=== PATIENT | female | born 1945 | race Caucasian/White ===

== ENCOUNTER 2019-05-08 10:11 | Inpatient (IN) | payer MEDICARE ==
--- OUTSIDE RECORDS SUMMARY | 2019-05-08 10:17 | XMS REPORT | Continuity of Care Document ---
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 President [employer] Unavailable Payers Date Identification Numbers Payment Provider Subscriber Effective: 2008 Policy Number: [id number] [place] Expires: 2018 PayID: [id number] [address] [place] [address] Effective: 2018 Policy Number: [id number] [place] PayID: [id number] [address] [facility] [place] [place] [address] Problems Active Problems Provider Date Tobacco user Alban Wu MD Onset: 09/22/2012 Impaired fasting glycaemia Alban Wu MD Onset: 10/06/2012 Pure hypercholesterolemia Alban Wu MD Onset: 10/06/2012 Essential hypertension Alban Wu MD Onset: 10/06/2012 Vitamin D deficiency Alban Wu MD Onset: 02/15/2013 Mitral valve disorder Alban Wu MD Onset: 11/06/2015 Hypertensive heart disease without heart Alban Wu MD Onset: 2015 failure Carotid artery occlusion Alban Wu MD Onset: 04/07/2017 Resolved Problems Chronic pulmonary heart disease Alban Wu MD Onset: 11/06/2015 Resolved: 07/01/2018 Tricuspid valve disorder, non-rheumatic Alban Wu MD Onset: 2015 Resolved: 07/01/2018 Secondary pulmonary hypertension Alban Wu MD Onset: 03/31/2018 Resolved: 07/01/2018 Family History Date Family Member(s) Observation Comments General None Social History Type Date Description Comments Sex Unknown Marital Status 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 1/2 PPD as per 03/21/15 info and 11/05 of PPD since April of 2015. Smoking Status Reviewed: current cigarette 1/2 PPD "Off and on" 03/31/18 smoker Since 11/2013 1 pack per week. 1/2 PPD as per 03/21/15 info and 11/05 of PPD since April of 2015. ETOH Use Consumes 1 glass of wine per day Recreational Drug Use Denies Drug Use Tobacco Use Start: Unknown Patient is a current smoker, smokes some days Exercise Exercises sporadically Type/Frequency Allergies, Adverse Reactions, Alerts Active Allergies Reaction Severity Comments Date Penicillins Skin Rashes/Hives Moderate 10/09/2008 Shellfish Skin Rashes/Hives Mild 10/09/2008 Medications Active Medications SIG Qnty Indications Ordering Date Provider Prevnar 13 administer half a 1units Z00.01 Phoenix A 04/04/2019 milliliters MD Jazmin Suspension intramuscularly one time for inactivated vaccination to prevent pneumococcal infection F17.210 Atorvastatin Calcium take one tablet by 90tabs I65.21 Alban A 2017 20mg mouth in the evening MD Jazmin Tablets for high cholesterol E78.00 Aspir-Low take 1 tablet by I65.21 Alban Wu, 11/06/[address] mouth daily for MD treatment to prevent blood clotting Vitamin D-3 1 by mouth every E55.9 Alban Wu, 02/15/2013 2000Unit day Tablets Lisinopril take one tablet by 90tabs I10 Alban Wu, 10/06/2012 10mg Tablets mouth every day for MD high blood pressure Multivitamins 1 by mouth every Unknown 11/02/1999 Tablets day History Medications Shingrix one intramuscular 1units Z00.01 Phoenix A 03/31/2018 - 50mcg dose now and repeat MD Jazmin 07/01/2018 Suspension Rec 2nd dose after 2-6 months. Atorvastatin take 1 tablet by 90tabs I65.21 Alban Saunders 03/21/2015 - Calcium mouth daily for MD Jazmin 03/31/2018 10mg elevation of Tablets cholesterol in blood E78.00 Immunizations CPT Code Status Date Vaccine Lot # [id number] Given 09/28/2017 Influenza Vaccine Quadrivalent [id number] Preser/Antibiotic [place] Use [address] Given 08/14/2016 Influenza Virus Split 3 Yrs And Above For [id number] Intramuscular Use 21785 Given 07/11/2015 Influenza Virus Split 3 Yrs And Above For [id number] Intramuscular Use 51680 Given 08/21/2014 Influenza Virus Split 3 Yrs And Above For Flu [id number] Intramuscular Use 01554 Given 07/22/2013 Influenza Virus Split 3 Yrs And Above For FLU [id number] Intramuscular Use 99648 Given 09/22/2012 Pneumococcal Vaccine 2Yrs Or Older PNEUMO [id number] 78047 Given 09/22/2012 Tdap-Tetanus, Diphtheria Toxoids/Acellular TDAP [id number] Pertussis Vaccine 7+ 59995 Given 08/18/2012 Influenza Virus Split 3 Yrs And Above For FLU [id number] Intramuscular Use 86585 Given 08/29/2011 Influenza Virus Split 3 Yrs And Above For FLU [id number] Intramuscular Use [id number] Refused 04/04/2019 Shingrix (Shingles) Vaccine [id number] Refused 09/22/2012 Zoster Shingles Vaccine For Subcutaneous Injection Vital Signs Date Vital Result Comment 04/04/2019 10:05am Body Temperature 99.4 F O2 % BldC Oximetry 95 % Heart Rate 108 /min BP Systolic 160 mmHg BP Diastolic 85 mmHg BP Systolic Recheck 135 mmHg BP Diastolic Recheck 80 mmHg BMI (Body Mass Index) 22.1 kg/m2 Weight 120.00 lb Height 61.75 inches 5'1.75" 11/10/2018 10:38am Heart Rate 78 /min BP Systolic 130 mmHg BP Diastolic 80 mmHg Weight 122.00 lb 07/01/2018 9:58am Heart Rate 78 /min BP Systolic 125 mmHg BP Diastolic 75 mmHg 04/06/2018 8:31am Ejection Fraction 55-65% ECHO 03/31/2018 10:02am Body Temperature 98.3 F O2 % BldC Oximetry 96 % Heart Rate 93 /min BP Systolic 118 mmHg BP Diastolic 80 mmHg BMI (Body Mass Index) 21.6 kg/m2 Weight 117.00 lb Height 61.75 inches 5'1.75" 09/28/2017 11:13am Heart Rate 76 /min BP Systolic 125 mmHg BP Diastolic 80 mmHg Weight 121.00 lb 07/02/2017 10:59am Heart Rate 72 /min BP Systolic 130 mmHg BP Diastolic 80 mmHg 03/26/2017 10:20am Body Temperature 98.3 F Heart Rate 66 /min BP Systolic 110 mmHg BP Diastolic 80 mmHg BMI (Body Mass Index) 22.5 kg/m2 Weight 123.00 lb Height 62 inches 5'2" 09/24/2016 9:51am Heart Rate 76 /min BP Systolic 160 mmHg BP Diastolic 85 mmHg BP Systolic Recheck 130 mmHg "At home" per patient BP Diastolic Recheck 80 mmHg "At home" per patient Weight 124.00 lb 03/24/2016 11:17am O2 % BldC Oximetry 96 % Heart Rate 90 /min BP Systolic 145 mmHg BP Diastolic 80 mmHg BMI (Body Mass Index) 22.3 kg/m2 Weight 122.00 lb Height 62 inches 5'2" 10/03/2015 11:26am Heart Rate 70 /min BP Systolic 125 mmHg BP Diastolic 80 mmHg 06/25/2015 10:57am Heart Rate 68 /min BP Systolic 122 mmHg BP Diastolic 75 mmHg Weight 128.00 lb 03/21/2015 11:29am O2 % BldC Oximetry 96 % Heart Rate 81 /min BP Systolic 126 mmHg BP Diastolic 80 mmHg BMI (Body Mass Index) 24.2 kg/m2 Weight 131.00 lb Height 61.75 inches 5'1.75" 03/16/2014 10:59am Body Temperature 98.9 F O2 % BldC Oximetry 96 % Heart Rate 84 /min BP Systolic 124 mmHg BP Diastolic 75 mmHg BMI (Body Mass Index) 24.7 kg/m2 Weight 135.00 lb with shoes, in office, clothed Height 62 inches 5'2" 12/06/2013 10:23am Body Temperature 98.6 F O2 % BldC Oximetry 99 % Ra, AT Rest Heart Rate 76 /min BP Systolic 130 mmHg BP Diastolic 75 mmHg BMI (Body Mass Index) 24.3 kg/m2 Weight 133.00 lb Height 62 inches 5'2" 06/23/2013 9:54am Heart Rate 68 /min BP Systolic 125 mmHg BP Diastolic 70 mmHg BMI (Body Mass Index) 24.9 kg/m2 Weight 136.00 lb Height 62 inches 5'2" 02/15/2013 11:05am Heart Rate 62 /min BP Systolic 138 mmHg BP Diastolic 80 mmHg BMI (Body Mass Index) 26.0 kg/m2 Weight 142.00 lb Height 62 inches 5'2" 10/06/2012 10:41am Heart Rate 70 /min BP Systolic 160 mmHg BP Diastolic 85 mmHg BMI (Body Mass Index) 25.8 kg/m2 Weight 141.00 lb Height 62 inches 5'2" 09/22/2012 2:17pm Body Temperature 98.7 F O2 % BldC Oximetry 98 % Ra, AT Rest Heart Rate 80 /min BP Systolic 160 mmHg Bilateral Ue, while supine BP Diastolic 80 mmHg Bilateral Ue, while supine BP Systolic Recheck 160 mmHg Sitting BP Diastolic Recheck 80 mmHg Sitting BMI (Body Mass Index) 26.0 kg/m2 Weight 142.00 lb Height 62 inches 5'2" Results Test Date Facility Test Result H/L Range Note CBC No Diff 03/29/2019 [facility] White Blood 7.1 10^3/uL N 3.5-10.8 [place] [address] Count [phone] Red Blood Count 4.19 10^6/uL N 3.70-4.87 Hemoglobin 14.3 g/dL N 12.0-16.0 Hematocrit 42 % N 35-47 Mean Corpuscular Volume 100 fL High 80-97 Mean Corpuscular Hemoglobin 34 pg High 27-31 Mean Corpuscular HGB Conc 34 g/dL N 31-36 Red Cell Distribution Width 14 % N 10.5-15 Platelet Count 258 10^3/uL N 150-450 Mean Platelet Volume 8.2 fL N 7.4-10.4 Comp Metabolic Panel 03/29/2019 [facility] Sodium 140 mmol/L N 135-145 [place] [address] [phone] Potassium 4.5 mmol/L N 3.5-5.0 Chloride 104 mmol/L N 101-111 Co2 Carbon Dioxide 28 mmol/L N 22-32 Anion Gap 8 mmol/L N 2-11 Glucose 149 mg/dL High 70-100 Blood Urea Nitrogen 19 mg/dL N 6-24 Creatinine 0.63 mg/dL N 0.51-0.95 BUN/Creatinine Ratio 30.2 High 8-20 Calcium 10.1 mg/dL N 8.6-10.3 Total Protein 7.0 g/dL N 6.4-8.9 Albumin 4.6 g/dL N 3.2-5.2 Globulin 2.4 g/dL N 2-4 Albumin/Globulin Ratio 1.9 N 1-3 Total Bilirubin 0.80 mg/dL N 0.2-1.0 Alkaline Phosphatase 68 U/L N 34-104 Alt 70 U/L High 7-52 Ast 60 U/L High 13-39 Egfr Non- 91.9 >60 Egfr 111.2 >60 1 Lipid Profile 03/29/2019 [facility] Triglycerides 61 mg/dL 2 (Trig/Chol/HDL) [place] [address] [phone] Cholesterol 234 mg/dL 3 HDL Cholesterol 137.6 mg/dL 4 LDL Cholesterol 84 mg/dL 5 Laboratory test 03/29/2019 [facility] Hemoglobin A1c 5.8 % High 4.0-5.6 6 [place] [address] (Glyco HGB) [phone] Urinalysis 03/29/2019 [facility] [place] [address] [phone] Urine Appearance Cloudy Urine Specific Merrill 1.024 N 1.010-1.030 Urine pH 7.0 N 5-9 Urine Urobilinogen Negative Negative Urine Ketones Trace Abnormal Negative Urine Protein 1+(30 mg/dL) Abnormal Negative Urine Leukocytes Negative Negative Urine Blood Negative Negative * * Abnormal Negative 7 Urine Nitrite Negative Negative Urine Bilirubin Negative Negative Urine Glucose Negative Negative Urine White Blood Cell Trace(0-5/hpf) Absent Urine Red Blood Cell 2+(6-10/hpf) Abnormal Absent Urine Bacteria Absent Absent Urine Squamous Epithelial Cell Present Abnormal Absent Urine Culture And 03/29/2019 [facility] Urine Culture SEE RESULT 8 [place] [address] BELOW [phone] Laboratory test 06/24/2018 [facility] Alt 39 U/L N 7-52 [place] [address] [phone] LDL Cholesterol Direct 74 mg/dL 9 Hemoglobin A1c (Glyco HGB) 5.8 % High 4.0-5.6 10 Order 04/06/2018 [facility] Echocardiogram Normal [address] [place] [address] [phone] Lipid Profile 03/25/2018 [facility] Triglycerides 54 mg/dL < 150 11 (Trig/Chol/HDL) [place] [address] [phone] Cholesterol 219 mg/dL High <200 12 HDL Cholesterol 105.9 mg/dL >40 13 LDL Cholesterol 102 mg/dL High <100 14 Laboratory test 03/25/2018 [facility] Hemoglobin A1c 5.8 % High 4.0-5.6 15 [place] [address] (Glyco HGB) [phone] Comp Metabolic 03/25/2018 [facility] Sodium 139 N 139-145 [place] [address] mmol/L [phone] Potassium 4.5 mmol/L N 3.5-5.0 Chloride 101 mmol/L N 101-111 Co2 Carbon Dioxide 30 mmol/L N 22-32 Anion Gap 8 mmol/L N 2-11 Glucose 140 mg/dL High 70-100 Blood Urea Nitrogen 14 mg/dL N 6-24 Creatinine 0.63 mg/dL N 0.51-0.95 BUN/Creatinine Ratio 22.2 High 8-20 Calcium 9.6 mg/dL N 8.6-10.3 Total Protein 7.0 g/dL N 6.4-8.9 Albumin 4.4 g/dL N 3.2-5.2 Globulin 2.6 g/dL N 2-4 Albumin/Globulin Ratio 1.7 N 1-3 Total Bilirubin 0.60 mg/dL N 0.2-1.0 Alkaline Phosphatase 54 U/L N 34-104 Alt 20 U/L N 7-52 Ast 24 U/L N 13-39 Egfr Non- 92.1 >60 Egfr 118.5 >60 16 CBC No Diff 03/25/2018 [facility] White Blood 5.3 10^3/uL N 3.5-10.8 [place] [address] Count [phone] Red Blood Count 4.42 10^6/uL N 4.0-5.4 Hemoglobin 14.7 g/dL N 12.0-16.0 Hematocrit 43 % N 35-47 Mean Corpuscular Volume 98 fL High 80-97 Mean Corpuscular Hemoglobin 33 pg High 27-31 Mean Corpuscular HGB Conc 34 g/dL N 31-36 Red Cell Distribution Width 13 % N 10.5-15 Platelet Count 268 10^3/uL N 150-450 Mean Platelet Volume 8.5 um3 N 7.4-10.4 Basic Metabolic Panel 09/21/2017 [facility] Sodium 139 mmol/L N 133-145 [place] [address] [phone] Potassium 4.5 mmol/L N 3.5-5.0 Chloride 102 mmol/L N 101-111 Co2 Carbon Dioxide 30 mmol/L N 22-32 Anion Gap 7 mmol/L N 2-11 Glucose 124 mg/dL High 70-100 Blood Urea Nitrogen 18 mg/dL N 6-24 Creatinine 0.59 mg/dL N 0.51-0.95 BUN/Creatinine Ratio 30.5 High 8-20 Calcium 10.2 mg/dL N 8.6-10.3 Egfr Non- 99.6 >60 Egfr 128.1 >60 17 Laboratory 09/21/2017 [facility] Hemoglobin A1c 5.7 % High 4.0 -5.6 18 [place] [address] (Glyco HGB) [phone] Xray 04/02/2017 [facility] Carotid Duplex >70% Rt I[facility] [address] Scan, [place] [address] Complete, [phone] Bilateral CBC No Diff 03/19/2017 [facility] White Blood 7.6 10^3/uL N 3.5-10.8 [place] [address] Count [phone] Red Blood Count 4.36 10^6/uL N 4.0-5.4 Hemoglobin 14.2 g/dL N 12.0-16.0 Hematocrit 41 % N 35-47 Mean Corpuscular Volume 95 fL N 80-97 Mean Corpuscular Hemoglobin 33 pg High 27-31 Mean Corpuscular HGB Conc 34 g/dL N 31-36 Red Cell Distribution Width 13 % N 10.5-15 Platelet Count 281 10^3/uL N 150-450 Mean Platelet Volume 9 um3 N 7.4-10.4 Comp Metabolic Panel 03/19/2017 [facility] Sodium 138 mmol/L N 133-145 [place] [address] [phone] Potassium 4.0 mmol/L N 3.5-5.0 Chloride 101 mmol/L N 101-111 Co2 Carbon Dioxide 29 mmol/L N 22-32 Anion Gap 8 mmol/L N 2-11 Glucose 137 mg/dL High 70-100 Blood Urea Nitrogen 17 mg/dL N 6-24 Creatinine 0.69 mg/dL N 0.51-0.95 BUN/Creatinine Ratio 24.6 High 8-20 Calcium 9.8 mg/dL N 8.6-10.3 Total Protein 6.8 g/dL N 6.4-8.9 Albumin 4.4 g/dL N 3.2-5.2 Globulin 2.4 g/dL N 2-4 Albumin/Globulin Ratio 1.8 N 1-3 Total Bilirubin 0.60 mg/dL N 0.2-1.0 Alkaline Phosphatase 50 U/L N 34-104 Alt 19 U/L N 7-52 Ast 21 U/L N 13-39 Egfr Non- 83.4 N >60 Egfr 107.3 N >60 19 Laboratory test 03/19/2017 [facility] Hemoglobin A1c 6.1 % High Less 20 [place] [address] (Glyco HGB) than 6.0 [phone] Lipid Profile 03/19/2017 [facility] Triglycerides 66 N <150 21 (Trig/Chol/HDL) [place] [address] mg/dL [phone] Cholesterol 200 mg/dL N <200 22 HDL Cholesterol 88.2 mg/dL N >40 23 LDL Cholesterol 99 mg/dL N <100 24 Urinalysis Profile 03/19/2017 [facility] [place] [address] [phone] Urine Appearance Clear N Urine Specific Merrill 1.004 Low 1.010-1.030 Urine pH 7.0 N 5-9 Urine Urobilinogen Negative N Negative Urine Ketones Negative N Negative Urine Protein Negative N Negative Urine Leukocytes Negative N Negative Urine Blood Negative N Negative Urine Nitrite Negative N Negative Urine Bilirubin Negative N Negative Urine Glucose Negative N Negative Basic Metabolic Panel 09/17/2016 [facility] Sodium 138 mmol/L N 133-145 [place] [address] [phone] Potassium 4.8 mmol/L N 3.5-5.0 Chloride 101 mmol/L N 101-111 Co2 Carbon Dioxide 30 mmol/L N 22-32 Anion Gap 7 mmol/L N 2-11 Glucose 108 mg/dL High 70-100 Blood Urea Nitrogen 13 mg/dL N 6-24 Creatinine 0.62 mg/dL N 0.51-0.95 BUN/Creatinine Ratio 21.0 High 8-20 Calcium 9.7 mg/dL N 8.6-10.3 Egfr Non- 94.4 N >60 Egfr 121.3 N >60 25 Laboratory test 09/17/2016 [facility] Hemoglobin A1c 6.2 % High Less than [address] [place] [address] (Glyco HGB) 6.0 [phone] Xray 04/04/2016 [facility] Mammography, Normal [address] Screening, [place] [address] Bilateral [phone] Urinalysis 03/17/2016 [facility] Urine Color Yellow N 27 [place] [address] [phone] Urine Appearance Cloudy N Urine Specific Merrill 1.019 N 1.010-1.030 Urine pH 6.0 N 5-9 Urine Urobilinogen Negative N Negative Urine Ketones Negative N Negative Urine Protein Negative N Negative Urine Leukocytes Negative N Negative Urine Blood Negative N Negative Urine Nitrite Negative N Negative Urine Bilirubin Negative N Negative Urine Glucose Negative N Negative CBC No Diff 03/17/2016 [facility] White Blood 3.9 10^3/uL N 3.5-10.8 [place] [address] Count [phone] Red Blood Count 4.33 10^6/uL N 4.0-5.4 Hemoglobin 13.9 g/dL N 12.0-16.0 Hematocrit 43 % N 35-47 Mean Corpuscular Volume 98 fL High 80-97 Mean Corpuscular Hemoglobin 32 pg High 27-31 Mean Corpuscular HGB Conc 33 g/dL N 31-36 Red Cell Distribution Width 14 % N 10.5-15 Platelet Count 269 10^3/uL N 150-450 Mean Platelet Volume 8 um3 N 7.4-10.4 Comp Metabolic Panel 03/17/2016 [facility] Sodium 141 mmol/L N 133-145 [place] [address] [phone] Potassium 4.1 mmol/L N 3.5-5.0 Chloride 105 mmol/L N 101-111 Co2 Carbon Dioxide 30 mmol/L N 22-32 Anion Gap 6 mmol/L N 2-11 Glucose 99 mg/dL N 70-100 Blood Urea Nitrogen 14 mg/dL N 6-24 Creatinine 0.55 mg/dL N 0.51-0.95 BUN/Creatinine Ratio 25.5 High 8-20 Calcium 9.7 mg/dL N 8.6-10.3 Total Protein 6.6 g/dL N 6.4-8.9 Albumin 4.5 g/dL N 3.2-5.2 Globulin 2.1 g/dL N 2-4 Albumin/Globulin Ratio 2.1 N 1-3 Total Bilirubin 0.50 mg/dL N 0.2-1.0 Alkaline Phosphatase 48 U/L N 34-104 Alt 20 U/L N 7-52 Ast 22 U/L N 13-39 Egfr Non- 108.6 N >60 Egfr 139.7 N >60 28 Laboratory test 03/17/2016 [facility] Hemoglobin A1c 6.1 % High Less 29 [place] [address] (Glyco HGB) than 6.0 [phone] Lipid Profile 03/17/2016 [facility] Triglycerides 86 N <150 30 (Trig/Chol/HDL) [place] [address] mg/dL [phone] Cholesterol 180 mg/dL N <200 31 HDL Cholesterol 78.4 mg/dL N >35 32 LDL Cholesterol 84 mg/dL N <100 33 Order 10/11/2015 [facility] Echocardiogram MS/TR/Ef 60% [address] [place] [address] [phone] Basic Metabolic 09/26/2015 [facility] Sodium 139 mmol/L N 133- 14 [place] [address] 5 [phone] Potassium 4.9 mmol/L N 3.5-5.0 Chloride 102 mmol/L N 101-111 Co2 Carbon Dioxide 31 mmol/L N 22-32 Anion Gap 6 mmol/L N 2-11 Glucose 109 mg/dL High 70-100 Blood Urea Nitrogen 10 mg/dL N 6-24 Creatinine 0.69 mg/dL N 0.51-0.95 BUN/Creatinine Ratio 14.5 N 8-20 Calcium 10.2 mg/dL N 8.6-10.3 Egfr Non- 83.6 N >60 Egfr 107.6 N >60 34 Laboratory test 09/26/2015 [facility] Vitamin D 39.8 ng/mL N 30-50 [place] [address] Total 25(Oh) [phone] Hemoglobin A1c (Glyco HGB) 6.3 % High Less than 6.0 35 Laboratory test 06/18/2015 [facility] Creatine Kinase 73 U/L N 10-223 36 [place] [address] [phone] Alt 20 U/L N 7-52 37 Hemoglobin A1c (Glyco HGB) 6.3 % High Less than 6.0 38 Lipid Profile 06/18/2015 [facility] Triglycerides 59 mg/dL N 39 (Trig/Chol/HDL) [place] [address] [phone] Cholesterol 175 mg/dL N 40 HDL Cholesterol 77.7 mg/dL N 41 LDL Cholesterol 86 mg/dL N 42 Urine Microalbumin 03/14/2015 [facility] Ur Microalbumin 23.0 mg /[place] [address] (mg/L) [phone] Urine Creatinine 16.99 mg/dL N Urine Microalbumin/Creatinine 135.3 ug/mg High <31 Lipid Profile 03/14/2015 [facility] Triglycerides 95 mg/dL N 43 (Trig/Chol/HDL) [place] [address] [phone] Cholesterol 232 mg/dL N 44 HDL Cholesterol 82.1 mg/dL N 45 LDL Cholesterol 131 mg/dL N 46 Laboratory test 03/14/2015 [facility] Hemoglobin A1c 6.3 % High Less than 47 [place] [address] 6.0 [phone] Basic Metabolic 03/14/2015 [facility] Sodium 139 N 133-145 [place] [address] mmol/L [phone] Potassium 4.3 mmol/L N 3.5-5.0 Chloride 102 mmol/L N 101-111 Co2 Carbon Dioxide 28 mmol/L N 22-32 Anion Gap 9 mmol/L N 2-11 Glucose 96 mg/dL N 70-100 Blood Urea Nitrogen 9 mg/dL N 6-24 Creatinine 0.58 mg/dL N 0.51-0.95 BUN/Creatinine Ratio 15.5 N 8-20 Calcium 9.9 mg/dL N 8.6-10.3 Egfr Non- 102.5 N >60 Egfr 131.8 N >60 48 CBC No Diff 03/14/2015 [facility] White Blood 3.8 10^3/uL Low 4.8-10.8 [place] [address] Count [phone] Red Blood Count 4.30 10^6/uL N 4.0-5.4 Hemoglobin 14.5 g/dL N 12.0-16.0 Hematocrit 42 % N 35-47 Mean Corpuscular Volume 98 fL High 80-97 Mean Corpuscular Hemoglobin 34 pg High 27-31 Mean Corpuscular HGB Conc 34 g/dL N 31-36 Red Cell Distribution Width 14 % N 10.5-15 Platelet Count 272 10^3/uL N 150-450 Mean Platelet Volume 8 um3 N 7.4-10.4 Xray 12/26/2014 [facility] Mammography, Normal [address] Screening, [place] [address] Bilateral [phone] Laboratory 03/09/2014 [facility] Hemoglobin A1c 6.2 % High Less 49 [place] [address] than 6.0 [phone] Basic 03/09/2014 [facility] Sodium 139 mmol/L 133-145 [place] [address] Panel [phone] Potassium 4.6 mmol/L 3.7-5.6 Chloride 105 mmol/L 101-111 Co2 Carbon Dioxide 28 mmol/L 22-32 Anion Gap 6 mmol/L 2-11 Glucose 102 mg/dL High 70-100 Blood Urea Nitrogen 16 mg/dL 6-24 Creatinine 0.71 mg/dL 0.51-0.95 BUN/Creatinine Ratio 22.5 High 8-20 Calcium 9.5 mg/dL 8.6-10.3 Egfr Non- 81.4 >60 Egfr 104.7 >60 50 Xray 12/06/2013 [facility] Mammography, Normal [address] Screening, [place] [address] Bilateral [phone] CBC No Diff 11/29/2013 [facility] White Blood Count 7.8 10^3/uL 4.8-10. [place] [address] 8 [phone] Red Blood Count 4.51 10^6/uL 4.0-5.4 Hemoglobin 14.9 g/dL 12.0-16.0 Hematocrit 43 % 35-47 Mean Corpuscular Volume 95 fL 80-97 Mean Corpuscular Hemoglobin 33 pg High 27-31 Mean Corpuscular HGB Conc 35 g/dL 31-36 Red Cell Distribution Width 14 % 10.5-15 Platelet Count 314 10^3/uL 150-450 Mean Platelet Volume 8 um3 7.4-10.4 Comp Metabolic Panel 11/29/2013 [facility] Sodium 137 mmol/L 133-145 [place], [place] [address]277 [phone] Potassium 4.2 mmol/L 3.5-5.0 Chloride 99 mmol/L Low 101-111 Co2 Carbon Dioxide 30.0 mmol/L 22-32 Anion Gap 8.0 mmol/L 2-11 Glucose 109 mg/dL High 70-100 Blood Urea Nitrogen 9 mg/dL 6-24 Creatinine 0.70 mg/dL 0.50-1.40 BUN/Creatinine Ratio 12.9 8-20 Calcium 10.0 mg/dL High 8.1-9.9 Total Protein 6.7 g/dL 6.2-8.1 Albumin 4.6 g/dL 3.2-5.2 Globulin 2.1 g/dL 2-4 Albumin/Globulin Ratio 2.2 1-3 Total Bilirubin 0.8 mg/dL 0.4-1.5 Alkaline Phosphatase 53 U/L 30-110 Alt 23 U/L 14-54 Ast 25 U/L 12-42 Egfr Non- 82.7 >60 Egfr 106.4 >60 51 Lipid Profile 11/29/2013 [facility] Triglycerides 83 mg/dL 40 -200 (Trig/Chol/HDL) [place], [place] [address]14 [phone] Cholesterol 286 mg/dL High Less than 200 HDL Cholesterol 95 mg/dL High 40-60 52 Cholesterol/HDL Ratio 3.0 Average 1-4.44 LDL Cholesterol 174.4 High Less Than 100 53 Laboratory test 11/29/2013 [facility] Hemoglobin A1c 6.3 % High Less than 54 [place] [address] 6.0 [phone] Vitamin D, 25 11/29/2013 [facility] 25-Hydroxy <4.0 [place] [address] Vitamin D2 ng/mL [phone] 25-Hydroxy Vitamin D3 43 ng/mL 25-Hydroxy Vitamin D Total 43 ng/mL 25-50 55 Urine Microalbumin 11/29/2013 [facility] Ur Microalbumin 8.0 mg/ L 56 [place] [address] (mg/L) [phone] Urine Creatinine 10.1 mg/dL Urine Microalbumin/Creatinine 79.2 High Less Than 31 Xray 07/05/2013 [facility] Chest, 2 Views Normal [address] [place] [address] [phone] Laboratory test 07/05/2013 [facility] Calcitonin <5.0 pg/mL 57 [address] [place], [place] [address]244 [phone] PTH Related Peptide 0.2 pmol/L <2.0 58 Pthi 07/05/2013 [facility] PTH Intact 3.6 pmol/L 1.3-9.0 [place] [address] [phone] Calcium (PTH Intact) 9.6 mg/dL 8.1-9.9 Vitamin D, 25 06/16/2013 [facility] 25-Hydroxy Vitamin <4.0 ng/ [place] [address] D2 [phone] 25-Hydroxy Vitamin D3 37 ng/mL 25-Hydroxy Vitamin D Total 37 ng/mL 25-80 59 Basic Metabolic Panel 06/16/2013 [facility] Sodium 140 mmol/L 133-145 [place], [place] [address] [phone] Potassium 4.8 mmol/L 3.5-5.0 Chloride 103 mmol/L 101-111 Co2 Carbon Dioxide 29.0 mmol/L 22-32 Anion Gap 8.0 mmol/L 2-11 Glucose 108 mg/dL High 70-100 Blood Urea Nitrogen 9 mg/dL 6-24 Creatinine 0.70 mg/dL 0.50-1.40 BUN/Creatinine Ratio 12.9 8-20 Calcium 10.3 mg/dL High 8.1-9.9 Egfr Non- 82.7 >60 Egfr 106.4 >60 60 Laboratory test 06/16/2013 [facility] Insulin 3.8 mcIU/mL 2.6 - 61 [place] [address] Level 24.9 [phone] Hemoglobin A1c 6.0 % Less than 6.0 62 Laboratory test 02/08/2013 [facility] TSH (Thyroid 0.80 0.34- 5.60 [address] [place] [address] Stimulating miu/mL [phone] Horm) Vitamin D, 25 02/08/2013 [facility] 25-Hydroxy <4.0 ng/[place] [address] Vitamin D2 [phone] 25-Hydroxy Vitamin D3 24 ng/mL 25-Hydroxy Vitamin D Total 24 ng/mL Low 25-80 64 Lipid Profile 02/08/2013 [facility] Triglycerides 66 mg/dL 40 -200 (Trig/Chol/HDL) [place] [address] [phone] Cholesterol 249 mg/dL High Less than 200 HDL Cholesterol 82 mg/dL High 40-60 65 Cholesterol/HDL Ratio 3.0 Average 1-4.44 LDL Cholesterol 153.8 mg/dL High Less Than 100 66 Laboratory test 02/08/2013 [facility] Hemoglobin A1c 6.1 % High Less than [address] [place] [address] 6.0 [phone] Basic Metabolic 02/08/2013 [facility] Sodium 142 133-145 [place] [address] mmol/L [phone] Potassium 5.2 mmol/L High 3.5-5.0 Chloride 105 mmol/L 101-111 Co2 Carbon Dioxide 29.0 mmol/L 22-32 Anion Gap 8.0 mmol/L 2-11 Glucose 127 mg/dL High 70-100 Blood Urea Nitrogen 14 mg/dL 6-24 Creatinine 0.60 mg/dL 0.50-1.40 BUN/Creatinine Ratio 23.3 High 8-20 Calcium 9.9 mg/dL 8.1-9.9 Egfr Non- 99.1 >60 Egfr 127.5 >60 68 Basic Metabolic Panel 10/20/2012 [facility] Sodium 141 mmol/L 133-145 [place] [address] [phone] Potassium 4.8 mmol/L 3.5-5.0 Chloride 107 mmol/L 101-111 Co2 Carbon Dioxide 31.0 mmol/L 22-32 Anion Gap 3.0 mmol/L 2-11 Glucose 111 mg/dL High 70-100 Blood Urea Nitrogen 15 mg/dL 6-24 Creatinine 0.70 mg/dL 0.50-1.40 BUN/Creatinine Ratio 21.4 High 8-20 Calcium 10.0 mg/dL High 8.1-9.9 Egfr Non- 83.0 >60 Egfr 106.7 >60 69 Xray 10/07/2012 [facility] Mammography, [facility] [address] Screening, [place] [address] Bilateral [phone] Order 10/06/2012 [facility] EKG NSR, [place] [address] enl [phone] Laboratory 10/06/2012 [facility] Hemoglobin A1c 5.6 Low 6-7 test finding [address] [place], [place] [id number] [phone] Urinalysis 09/28/2012 [facility] Urine Color Yellow [place], [place] [id number] [phone] Urine Appearance Clear Urine Specific Merrill 1.017 1.010-1.030 Urine Esterase Negative Negative Urine Nitrate Negative Negative Urine Urobilinogen Negative Negative Urine Protein Negative Negative Urine pH 7.0 5-9 Urine Blood Negative Negative Urine Ketones Negative Negative Urine Bilirubin Negative Negative Urine Glucose Negative Negative Lipid Profile 09/28/2012 [facility] Triglycerides 93 mg/dL 40 -200 (Trig/Chol/HDL) [place] [address] [phone] Cholesterol 246 mg/dL High Less than 200 HDL Cholesterol 78 mg/dL High 40-60 70 Cholesterol/HDL Ratio 3.2 AVERAGE 1-4.44 LDL Cholesterol 149.4 mg/dL High Less Than 130 71 Comp Metabolic Panel 09/28/2012 [facility] Sodium 138 mmol/L 133-145 [place] [address] [phone] Potassium 4.3 mmol/L 3.5-5.0 Chloride 102 mmol/L 101-111 Co2 Carbon Dioxide 29.0 mmol/L 22-32 Anion Gap 7.0 mmol/L 2-11 Glucose 114 mg/dL High 70-100 Blood Urea Nitrogen 13 mg/dL 6-24 Creatinine 0.70 mg/dL 0.50-1.40 BUN/Creatinine Ratio 18.6 8-20 Calcium 9.6 mg/dL 8.1-9.9 Total Protein 5.9 GM/DL Low 6.2-8.1 Albumin 3.9 GM/DL 3.2-5.2 Globulin 2.0 GM/DL 2-4 Albumin/Globulin Ratio 2.0 1-3 Total Bilirubin 0.8 mg/dL 0.4-1.5 Alkaline Phosphatase 64 U/L 30-110 Alt 14 U/L 14-54 Ast 17 U/L 12-42 Egfr Non- 83.0 >60 Egfr 106.7 >60 72 CBC No Diff 09/28/2012 [facility] White Blood 8.7 10^3/uL 4.8 -10.8 [place] [address] Count [phone] Red Blood Count 4.35 10^6/uL 4.0-5.4 Hemoglobin 13.8 g/dL 12.0-16.0 Hematocrit 41 % 35-47 Mean Corpuscular Volume 95 fL 80-97 Mean Corpuscular Hemoglobin 32 pg High 27-31 Mean Corpuscular HGB Conc 33 g/dL 31-36 Red Cell Distribution Width 14 % 10.5-15 Platelet Count 268 10^3/uL 150-450 Mean Platelet Volume 9 um3 7.4-10.4 1 Because ethnic data is not always readily available, this report includes an eGFR for both -Americans and non- Americans. The National Kidney Disease Education Program (NKDEP) does not endorse the use of the MDRD equation for patients that are not between the ages of 18 and 70, are , have extremes of body size, muscle mass, or nutritional status, or are non- or non-. According to the National Kidney Foundation, irrespective of diagnosis, the stage of the disease is based on the level of kidney function: Stage Description GFR(mL/min/1.73 m(2)) 1 Kidney damage with normal or decreased GFR 90 2 Kidney damage with mild decrease in GFR 60-89 3 Moderate decrease in GFR 30-59 4 Severe decrease in GFR 15-29 5 Kidney failure <15 (or dialysis) 2 Desirable: <150 Borderline High: 150-199 High: 200-499 Very High: >500 3 Desirable: <200 Borderline High: 200-239 High: >239 4 Low: <40 Desirable: 40-60 High: >60 5 Desirable: <100 Near Optimal: 100-129 Borderline High: 130-159 High: 160-189 Very High: >189 6 Therapeutic target for the treatment of diabetes mellitus patients is <7% HBA1C, and in selective patients <6.0%. Please refer to [place] [employer] diabetic care guidelines for further information. 7 *Ascorbic acid is present which may interfere with detection of blood. 8 SEE RESULT BELOW Name: ANGELICA BROOKE : [address]: Alban Wu MD Acct: [id number] Unit: [id number] AGE: 74 Location: [facility] Re03/29/19 SEX: F Status: REG REF SPEC: [id number] AMADEO: [birth year][address]: Alban Wu MD REQ: [id number] RECD: 03/29/19 STATUS: COMP _ SOURCE: URINE SPDESC: ORDERED: Urine Culture Procedure Result Reported Site Urine Culture Final 03/30/19- 923 ML No growth of clinically significant organisms * ML - Main Lab . END OF REPORT DEPARTMENT OF PATHOLOGY, [address] [place] [address] Biju Latif M.D. Director [facility] # [id number] 9 Desirable: <100 Near Optimal: 100-129 Borderline High: 130-159 High: 160-189 Very High: >189 10 Therapeutic target for the treatment of diabetes mellitus patients is <7% HBA1C, and in selective patients <6.0%. Please refer to [place] [employer] diabetic care guidelines for further information. 11 Desirable: <150 Borderline High: 150-199 High: 200-499 Very High: >500 12 Desirable: <200 Borderline High: 200-239 High: >239 13 Low: <40 Desirable: 40-60 High: >60 14 Desirable: <100 Near Optimal: 100-129 Borderline High: 130-159 High: 160-189 Very High: >189 15 Therapeutic target for the treatment of diabetes mellitus patients is <7% HBA1C, and in selective patients <6.0%. Please refer to [place] [employer] diabetic care guidelines for further information. 16 Because ethnic data is not always readily available, this report includes an eGFR for both -Americans and non- Americans. The National Kidney Disease Education Program (NKDEP) does not endorse the use of the MDRD equation for patients that are not between the ages of 18 and 70, are , have extremes of body size, muscle mass, or nutritional status, or are non- or non-. According to the National Kidney Foundation, irrespective of diagnosis, the stage of the disease is based on the level of kidney function: Stage Description GFR(mL/min/1.73 m(2)) 1 Kidney damage with normal or decreased GFR 90 2 Kidney damage with mild decrease in GFR 60-89 3 Moderate decrease in GFR 30-59 4 Severe decrease in GFR 15-29 5 Kidney failure <15 (or dialysis) 17 Because ethnic data is not always readily available, this report includes an eGFR for both -Americans and non- Americans. The National Kidney Disease Education Program (NKDEP) does not endorse the use of the MDRD equation for patients that are not between the ages of 18 and 70, are , have extremes of body size, muscle mass, or nutritional status, or are non- or non-. According to the National Kidney Foundation, irrespective of diagnosis, the stage of the disease is based on the level of kidney function: Stage Description GFR(mL/min/1.73 m(2)) 1 Kidney damage with normal or decreased GFR 90 2 Kidney damage with mild decrease in GFR 60-89 3 Moderate decrease in GFR 30-59 4 Severe decrease in GFR 15-29 5 Kidney failure <15 (or dialysis) 18 Therapeutic target for the treatment of diabetes mellitus patients is <7% HBA1C, and in selective patients <6.0%. Please refer to [place] [employer] diabetic care guidelines for further information. 19 Because ethnic data is not always readily available, this report includes an eGFR for both -Americans and non- Americans. The National Kidney Disease Education Program (NKDEP) does not endorse the use of the MDRD equation for patients that are not between the ages of 18 and 70, are , have extremes of body size, muscle mass, or nutritional status, or are non- or non-. According to the National Kidney Foundation, irrespective of diagnosis, the stage of the disease is based on the level of kidney function: Stage Description GFR(mL/min/1.73 m(2)) 1 Kidney damage with normal or decreased GFR 90 2 Kidney damage with mild decrease in GFR 60-89 3 Moderate decrease in GFR 30-59 4 Severe decrease in GFR 15-29 5 Kidney failure <15 (or dialysis) 20 Therapeutic target for the treatment of diabetes Mellitus patients is <7% HBA1C, and in selective patients <6.0%.Please refer to [place] [employer] Diabetic care guidelines for further information. 21 Desirable <150 Borderline high 150-199 High 200-499 Very High >500 22 Desirable <200 Borderline high 200-239 High >239 23 Low <40 Desirable: 40-60 High: >60 24 Desirable: <100 mg/dL Near Optimal: 100-129 mg/dL Borderline High: 130-159 mg/dL High: 160-189 mg/dL Very High: >189 mg/dL 25 Because ethnic data is not always readily available, this report includes an eGFR for both -Americans and non- Americans. The National Kidney Disease Education Program (NKDEP) does not endorse the use of the MDRD equation for patients that are not between the ages of 18 and 70, are , have extremes of body size, muscle mass, or nutritional status, or are non- or non-. According to the National Kidney Foundation, irrespective of diagnosis, the stage of the disease is based on the level of kidney function: Stage Description GFR(mL/min/1.73 m(2)) 1 Kidney damage with normal or decreased GFR 90 2 Kidney damage with mild decrease in GFR 60-89 3 Moderate decrease in GFR 30-59 4 Severe decrease in GFR 15-29 5 Kidney failure <15 (or dialysis) 26 Therapeutic target for the treatment of diabetes Mellitus patients is <7% HBA1C, and in selective patients <6.0%.Please refer to [place] [employer] Diabetic care guidelines for further information. 27 FASTING 28 Because ethnic data is not always readily available, this report includes an eGFR for both -Americans and non- Americans. The National Kidney Disease Education Program (NKDEP) does not endorse the use of the MDRD equation for patients that are not between the ages of 18 and 70, are , have extremes of body size, muscle mass, or nutritional status, or are non- or non-. According to the National Kidney Foundation, irrespective of diagnosis, the stage of the disease is based on the level of kidney function: Stage Description GFR(mL/min/1.73 m(2)) 1 Kidney damage with normal or decreased GFR 90 2 Kidney damage with mild decrease in GFR 60-89 3 Moderate decrease in GFR 30-59 4 Severe decrease in GFR 15-29 5 Kidney failure <15 (or dialysis) 29 Therapeutic target for the treatment of diabetes Mellitus patients is <7% HBA1C, and in selective patients <6.0%.Please refer to [place] [employer] Diabetic care guidelines for further information. 30 Desirable <150 Borderline high 150-199 High 200-499 Very High >500 31 Desirable <200 Borderline high 200-239 High >239 32 Low <40 Desirable: 40-60 High: >60 33 Desirable: <100 mg/dL Near Optimal: 100-129 mg/dL Borderline High: 130-159 mg/dL High: 160-189 mg/dL Very High: >189 mg/dL 34 Because ethnic data is not always readily available, this report includes an eGFR for both -Americans and non- Americans. The National Kidney Disease Education Program (NKDEP) does not endorse the use of the MDRD equation for patients that are not between the ages of 18 and 70, are , have extremes of body size, muscle mass, or nutritional status, or are non- or non-. According to the National Kidney Foundation, irrespective of diagnosis, the stage of the disease is based on the level of kidney function: Stage Description GFR(mL/min/1.73 m(2)) 1 Kidney damage with normal or decreased GFR 90 2 Kidney damage with mild decrease in GFR 60-89 3 Moderate decrease in GFR 30-59 4 Severe decrease in GFR 15-29 5 Kidney failure <15 (or dialysis) 35 Therapeutic target for the treatment of diabetes Mellitus patients is <7% HBA1C, and in selective patients <6.0%.Please refer to [place] [employer] Diabetic care guidelines for further information. 36 FASTING 37 FASTING 38 Therapeutic target for the treatment of diabetes Mellitus patients is <7% HBA1C, and in selective patients <6.0%.Please refer to [place] [employer] Diabetic care guidelines for further information. 39 Desirable <150 Borderline high 150-199 High 200-499 Very High >500 40 Desirable <200 Borderline high 200-239 High >239 41 Low <40 Desirable: 40-60 High: >60 42 Desirable: <100 mg/dL Near Optimal: 100-129 mg/dL Borderline High: 130-159 mg/dL High: 160-189 mg/dL Very High: >189 mg/dL 43 Desirable <150 Borderline high 150-199 High 200-499 Very High >500 44 Desirable <200 Borderline high 200-239 High >239 45 Low <40 Desirable: 40-60 High: >60 46 Desirable: <100 mg/dL Near Optimal: 100-129 mg/dL Borderline High: 130-159 mg/dL High: 160-189 mg/dL Very High: >189 mg/dL 47 Therapeutic target for the treatment of diabetes Mellitus patients is <7% HBA1C, and in selective patients <6.0%.Please refer to [place] [employer] Diabetic care guidelines for further information. 48 Because ethnic data is not always readily available, this report includes an eGFR for both -Americans and non- Americans. The National Kidney Disease Education Program (NKDEP) does not endorse the use of the MDRD equation for patients that are not between the ages of 18 and 70, are , have extremes of body size, muscle mass, or nutritional status, or are non- or non-. According to the National Kidney Foundation, irrespective of diagnosis, the stage of the disease is based on the level of kidney function: Stage Description GFR(mL/min/1.73 m(2)) 1 Kidney damage with normal or decreased GFR 90 2 Kidney damage with mild decrease in GFR 60-89 3 Moderate decrease in GFR 30-59 4 Severe decrease in GFR 15-29 5 Kidney failure <15 (or dialysis) 49 Therapeutic target for the treatment of diabetes Mellitus patients is <7% HBA1C, and in selective patients <6.0%.Please refer to [place] [employer] Diabetic care guidelines for further information. 50 Because ethnic data is not always readily available, this report includes an eGFR for both -Americans and non- Americans. The National Kidney Disease Education Program (NKDEP) does not endorse the use of the MDRD equation for patients that are not between the ages of 18 and 70, are , have extremes of body size, muscle mass, or nutritional status, or are non- or non-. According to the National Kidney Foundation, irrespective of diagnosis, the stage of the disease is based on the level of kidney function: Stage Description GFR(mL/min/1.73 m(2)) 1 Kidney damage with normal or decreased GFR 90 2 Kidney damage with mild decrease in GFR 60-89 3 Moderate decrease in GFR 30-59 4 Severe decrease in GFR 15-29 5 Kidney failure <15 (or dialysis) 51 Because ethnic data is not always readily available, this report includes an eGFR for both -Americans and non- Americans. The National Kidney Disease Education Program (NKDEP) does not endorse the use of the MDRD equation for patients that are not between the ages of 18 and 70, are , have extremes of body size, muscle mass, or nutritional status, or are non- or non-. According to the National Kidney Foundation, irrespective of diagnosis, the stage of the disease is based on the level of kidney function: Stage Description GFR(mL/min/1.73 m(2)) 1 Kidney damage with normal or decreased GFR 90 2 Kidney damage with mild decrease in GFR 60-89 3 Moderate decrease in GFR 30-59 4 Severe decrease in GFR 15-29 5 Kidney failure <15 (or dialysis) 52 HDL Interpretation: Undesirable: High Risk: Less than 40 mg/dL Desirable: Low Risk: Greater than 60 mg/dL 53 LDL Interpretation: Low Risk Optimal Level: LDL Less than 100 mg/dL Near or Above Optimal: LDL 100-129 mg/dL Borderline High Risk: LDL 130-159 mg/dL High Risk: LDL 160-189 mg/dL Very High Risk: LDL Greater than 189 mg/dL 54 Therapeutic target for the treatment of diabetes Mellitus patients is <7% HBA1C, and in selective patients <6.0%.Please refer to [place] [employer] Diabetic care guidelines for further information. 55 -- REFERENCE VALUE -- 25-HYDROXY D TOTAL (D2+D3) Optimum levels in the healthy population are 20-50, patients with bone disease may benefit from higher levels within this range. Test Performed by: [place] [address] Gluing Machine Operator Electronic: Hemant Hodge III, M.D. 56 Microalbuminuria in a random sample is defined as: Microalbumin/Creatinine ratio of 30-299 ug/mg. 57 -- REFERENCE VALUE -- Basal: <8 Peak Calcium Infusion: <=90 The testing method is an immunoenzymatic assay manufactured by [employer] and performed on the [employer] 2000. Values obtained with different assay methods or kits may be different and cannot be used interchangeably. Test results cannot be interpreted as absolute evidence for the presence or absence of malignant disease. Test Performed by: [place] [address] Gluing Machine Operator Electronic: Hemant Hodge III, M.D. 58 Test Performed by: [place] [address] Gluing Machine Operator Electronic: Hemant Hodge III, M.D. 59 -- REFERENCE VALUE -- 25-HYDROXY D TOTAL (D2+D3) Optimum levels in the normal population are 25-80 Test Performed by: [place] [address] Gluing Machine Operator Electronic: Hemant Hodge III, M.D. 60 Because ethnic data is not always readily available, this report includes an eGFR for both -Americans and non- Americans. The National Kidney Disease Education Program (NKDEP) does not endorse the use of the MDRD equation for patients that are not between the ages of 18 and 70, are , have extremes of body size, muscle mass, or nutritional status, or are non- or non-. According to the National Kidney Foundation, irrespective of diagnosis, the stage of the disease is based on the level of kidney function: Stage Description GFR(mL/min/1.73 m(2)) 1 Kidney damage with normal or decreased GFR 90 2 Kidney damage with mild decrease in GFR 60-89 3 Moderate decrease in GFR 30-59 4 Severe decrease in GFR 15-29 5 Kidney failure <15 (or dialysis) 61 Test Performed by: [facility] [address] [place] [address] Gluing Machine Operator Electronic: Hemant Hodge III, M.D. 62 Therapeutic target for the treatment of diabetes Mellitus patients is <7% HBA1C, and in selective patients <6.0%.Please refer to [place] [employer] Diabetic care guidelines for further information. 63 FASTING 64 Interpretation: 10-24 (mild to moderate deficiency) -- REFERENCE VALUE -- 25-HYDROXY D TOTAL (D2+D3) Optimum levels in the normal population are 25-80 Test Performed by: [facility] [address] [place] [address] Gluing Machine Operator Electronic: Hemant Hodge III, M.D. 65 HDL Interpretation: Undesirable: High Risk: Less than 40 MG/DL Desirable: Low Risk: Greater than 60 MG/DL 66 LDL Interpretation: Low Risk Optimal Level: LDL Less than 100 MG/DL Near or Above Optimal: LDL 100-129 MG/DL Borderline High Risk: LDL 130-159 MG/DL High Risk: LDL 160-189 MG/DL Very High Risk: LDL Greater than 189 MG/DL 67 Therapeutic target for the treatment of diabetes Mellitus patients is <7% HBA1C, and in selective patients <6.0%.Please refer to [place] [employer] Diabetic care guidelines for further information. 68 Because ethnic data is not always readily available, this report includes an eGFR for both -Americans and non- Americans. The National Kidney Disease Education Program (NKDEP) does not endorse the use of the MDRD equation for patients that are not between the ages of 18 and 70, are , have extremes of body size, muscle mass, or nutritional status, or are non- or non-. According to the National Kidney Foundation, irrespective of diagnosis, the stage of the disease is based on the level of kidney function: Stage Description GFR(mL/min/1.73 m(2)) 1 Kidney damage with normal or decreased GFR 90 2 Kidney damage with mild decrease in GFR 60-89 3 Moderate decrease in GFR 30-59 4 Severe decrease in GFR 15-29 5 Kidney failure <15 (or dialysis) 69 Because ethnic data is not always readily available, this report includes an eGFR for both -Americans and non- Americans. The National Kidney Disease Education Program (NKDEP) does not endorse the use of the MDRD equation for patients that are not between the ages of 18 and 70, are , have extremes of body size, muscle mass, or nutritional status, or are non- or non-. According to the National Kidney Foundation, irrespective of diagnosis, the stage of the disease is based on the level of kidney function: Stage Description GFR(mL/min/1.73 m(2)) 1 Kidney damage with normal or decreased GFR 90 2 Kidney damage with mild decrease in GFR 60-89 3 Moderate decrease in GFR 30-59 4 Severe decrease in GFR 15-29 5 Kidney failure <15 (or dialysis) 70 HDL Interpretation: Undesirable: High Risk: Less than 40 MG/DL Desirable: Low Risk: Greater than 60 MG/DL 71 LDL Interpretation: Low Risk Optimal Level: LDL Less than 100 MG/DL Near or Above Optimal: LDL 100-129 MG/DL Borderline High Risk: LDL 130-159 MG/DL High Risk: LDL 160-189 MG/DL Very High Risk: LDL Greater than 189 MG/DL 72 Because ethnic data is not always readily available, this report includes an eGFR for both -Americans and non- Americans. The National Kidney Disease Education Program (NKDEP) does not endorse the use of the MDRD equation for patients that are not between the ages of 18 and 70, are , have extremes of body size, muscle mass, or nutritional status, or are non- or non-. According to the National Kidney Foundation, irrespective of diagnosis, the stage of the disease is based on the level of kidney function: Stage Description GFR(mL/min/1.73 m(2)) 1 Kidney damage with normal or decreased GFR 90 2 Kidney damage with mild decrease in GFR 60-89 3 Moderate decrease in GFR 30-59 4 Severe decrease in GFR 15-29 5 Kidney failure <15 (or dialysis) Procedures Date Code Description Status 04/04/2016 [id number] Mammogram Completed 12/26/2014 [id number] Mammogram Completed 12/06/2013 [id number] Mammogram Completed 10/07/2012 [id number] Mammogram Completed 10/06/2012 [id number] Electrocardiogram Complete Completed Encounters Type Date Location Provider Dx Diagnosis Office Visit 04/04/2019 Main Office Alban Wu, Z00.01 Encounter for 10:00a general adult medical exam w abnormal findings I10 Essential (primary) hypertension I65.21 Occlusion and stenosis of right carotid artery I34.2 Nonrheumatic mitral (valve) stenosis F17.210 Nicotine dependence, cigarettes, uncomplicated R73.01 Impaired fasting glucose R94.5 Abnormal results of liver function studies Office Visit 11/10/2018 10:40a Main Office Alban Jung0 Essential ( primary) MD Jazmin hypertension I65.21 Occlusion and stenosis of right carotid artery I34.2 Nonrheumatic mitral (valve) stenosis F17.210 Nicotine dependence, cigarettes, uncomplicated Office Visit 07/01/2018 10:00a Main Office Alban Jung0 Essential ( primary) MD Jazmin hypertension I65.21 Occlusion and stenosis of right carotid artery I34.2 Nonrheumatic mitral (valve) stenosis I27.21 Secondary pulmonary arterial hypertension R73.01 Impaired fasting glucose F17.210 Nicotine dependence, cigarettes, uncomplicated Office Visit 03/31/2018 10:00a Main Office Alban Mccauley00.01 Encounter for MD Jazmin general adult medical exam w abnormal findings I34.2 Nonrheumatic mitral (valve) stenosis I27.21 Secondary pulmonary arterial hypertension I65.21 Occlusion and stenosis of right carotid artery F17.210 Nicotine dependence, cigarettes, uncomplicated R73.01 Impaired fasting glucose I10 Essential (primary) hypertension Office Visit 09/28/2017 10:40a Main Office Alban Saunders I65.21 Occlusion and MD Jazmin stenosis of right carotid artery I10 Essential (primary) hypertension R73.01 Impaired fasting glucose F17.210 Nicotine dependence, cigarettes, uncomplicated Z23 Encounter for immunization Office Visit 07/02/2017 10:40a Main Office Alban Saunders I65.21 Occlusion and MD Jazmin stenosis of right carotid artery I10 Essential (primary) hypertension F17.210 Nicotine dependence, cigarettes, uncomplicated Office Visit 04/07/2017 12:00p Main Office Alban Leon65.21 Occlusion and MD Jazmin stenosis of right carotid artery I10 Essential (primary) hypertension R73.01 Impaired fasting glucose F17.210 Nicotine dependence, cigarettes, uncomplicated Office Visit 03/26/2017 10:00a Main Office Alban Saunders Z00.01 Encounter for MD Jazmin general adult medical exam w abnormal findings R09.89 Oth symptoms and signs involving the circ and resp systems I34.2 Nonrheumatic mitral (valve) stenosis I10 Essential (primary) hypertension R73.01 Impaired fasting glucose F17.210 Nicotine dependence, cigarettes, uncomplicated Office Visit 09/24/2016 10:00a Main Office Alban Saunders I10 Essential ( primary) MD Jzamin hypertension I34.2 Nonrheumatic mitral (valve) stenosis R73.01 Impaired fasting glucose F17.210 Nicotine dependence, cigarettes, uncomplicated Office Visit 03/24/2016 10:40a Main Office Alban Saunders Z00.01 Encounter for MD Jazmin general adult medical exam w abnormal findings Z12.39 Encounter for ot screening for malignant neoplasm of breast I34.2 Nonrheumatic mitral (valve) stenosis F17.210 Nicotine dependence, cigarettes, uncomplicated I10 Essential (primary) hypertension E78.0 Pure hypercholesterolemia R73.01 Impaired fasting glucose Office Visit 11/06/2015 10:40a Main Office Alban Saunders I11.9 Hypertensive heart MD Jazmin disease without heart failure I34.2 Nonrheumatic mitral (valve) stenosis I27.2 Other secondary pulmonary hypertension I36.1 Nonrheumatic tricuspid (valve) insufficiency Office Visit 10/03/2015 11:00a Main Office Alban Saunders R01.1 Cardiac murmur , MD Jazmin unspecified I10 Essential (primary) hypertension R73.01 Impaired fasting glucose E55.9 Vitamin D deficiency, unspecified F17.210 Nicotine dependence, cigarettes, uncomplicated Office Visit 06/25/2015 10:40a Main Office Alban Saunders 401.9 Hypertension Unspec MD Jazmin 272.0 Hypercholesterolemia Pure 790.21 Impaired Fasting Glucose 305.1 Tobacco Use Disorder 268.9 Vitamin D Deficiency Unspec Office Visit 03/21/2015 11:20a Main Office Albna Saunders V70.0 Examination General MD Jazmin Medical Routine AT Health Care Facility 305.1 Tobacco Use Disorder 272.0 Hypercholesterolemia Pure 401.9 Hypertension Unspec 790.21 Impaired Fasting Glucose Office Visit 03/16/2014 10:40a Main Office Alban Saunders 401.9 Hypertension Unspec MD Jazmin 790.21 Impaired Fasting Glucose 305.1 Tobacco Use Disorder Office Visit 12/06/2013 10:00a Main Office Alban Saunders V70.0 Examination General MD Jazmin Medical Routine AT Health Care Facility V76.10 Screening For Malignant Neoplasm Breast 401.9 Hypertension Unspec 790.21 Impaired Fasting Glucose 268.9 Vitamin D Deficiency Unspec 272.0 Hypercholesterolemia Pure 305.1 Tobacco Use Disorder Office Visit 06/23/2013 10:00a Main Office Alban Saunders 401.9 Hypertension Unspec MD Jazmin 790.21 Impaired Fasting Glucose 268.9 Vitamin D Deficiency Unspec 275.42 Hypercalcemia 272.0 Hypercholesterolemia Pure 305.1 Tobacco Use Disorder Office Visit 02/15/2013 11:40a Main Office Alban Wu 790.21 Impaired Fasting MD Glucose 401.9 Hypertension Unspec 272.0 Hypercholesterolemia Pure 305.1 Tobacco Use Disorder 268.9 Vitamin D Deficiency Unspec V76.51 Special Screening For Malignant Neoplasms Colon Office Visit 10/06/2012 10:40a Main Office Alban Saunders 401.9 Hypertension Unspec MD Jazmin 790.21 Impaired Fasting Glucose 272.0 Hypercholesterolemia Pure 305.1 Tobacco Use Disorder Office Visit 09/22/2012 2:40p Main Office Alban Saunders V70.0 Examination General MD Jazmin Medical Routine AT Health Care Facility V76.10 Screening For Malignant Neoplasm Breast 305.1 Tobacco Use Disorder V06.1 Xnhtasdnpf-Bhmlkby-Vukhmhnr Combined (DTaP) V03.82 Streptococcus Pneumoniae Vaccination Spec Other Plan of Treatment Future Appointment(s):10/04/2019 10:40 am - Alban Wu MD at Main [id number]/04/2019 - Alban Wu MDZ00.01 Encounter for general adult medical examination with abnormaNew Medication:Prevnar 13 - administer half a milliliters intramuscularly one time for inactivated vaccination toprevent pneumococcal infectionComments:Age, sex and risk appropriate preventive care recommendations discussed with patient. Physical findings discussed in detail.Patient verbalized understanding. Lifestyle and dietary modifications advised. Medications related potential side effects, general precautions, follow up recommendations discussed with patient in detail. Patient verbalized understanding.I10 Essential (primary) hypertensionComments:Clinically stable. Continue recommended plan of care. Follow up recommendations discussed. Encouraged to continue efforts related to modification of life style`.I65.21 Occlusion and stenosis of right carotid arteryComments:Medications related potential side effects, general precautions, follow up recommendations discussedwith patient in detail. Patient verbalized understanding.I34.2 Nonrheumatic mitral (valve) stenosisComments:Clinically stable. Continue recommended plan of care. Follow up recommendations discussed. Encouraged to continue efforts related to modification of life style.F17.210 Nicotine dependence, cigarettes, uncomplicatedNew Medication:Prevnar 13 - administer half a milliliters intramuscularly one time for inactivated vaccination toprevent pneumococcal infectionComments:Patient warned regarding smoking hazards. Smoking cessation and treatment options discussed with patient. Patient verbalized understanding.R73.01 Impaired fasting glucoseComments: Lifestyle and dietary modifications advised.R94.5 Abnormal results of liver function studiesComments:Advised to avoid alcohol use. Tests recommended further plan of care pending availability of results.
[2019-05-08 10:31] LABS: ABS Lymphocytes 0.6 10^3/ul (1.0-4.8); ABS Monocytes 0.3 10^3/ul (0-0.8); ABS Neutrophils 4.7 10^3/ul (1.5-7.7); Eosinophil % 0.1 %; Hematocrit 40 % (35-47); Mean Corpuscular HGB Conc 35 g/dL (31-36); Mean Corpuscular Hemoglobin 35 pg (27-31); Mean Corpuscular Volume 100 fL (80-97); Mean Platelet Volume 7.3 fL (7.4-10.4); Platelet Count 256 10^3/uL (150-450); Red Blood Count 4.06 10^6 /uL (3.70-4.87); Red Cell Distribution Width 13 % (10-15); White Blood Count 5.7 10^3/uL (3.5-10.8)
[2019-05-08] MEDS ORDERED: Iodixanol* (CONTRAST) 320 MG/ML 100 ML SDV IV ONE (10:34)
[2019-05-08 10:41] LABS: INR 0.95 (0.82-1.09)
--- NOTE | 2019-05-08 10:49 | ED ---
Neurological HPI - HPI Summary HPI Summary: Patient is a 74 y/o F presenting to ED via EMS with positive [place] stroke scale. Patient is reported to have left-sided paralysis, right arm drift, right- sided gaze and slurred speech. EMS notes that the patient is unable to form full sentences. EMS reports that the patient's last known well was last night, , at 1900. Patient was seen by her tenant. However, the patient states that she awoke this morning today, 05/08/19 at 0600 asymptomatic. Patient got dressed and had breakfast around 0700. Tenant had later found the patient on the floor approximately 45 minutes prior to EMS arrival. Patient is out of time frame for TPA. Home medications and allergies are reviewed. Alfredo holder called at 1004, EMS ETA seven minutes. EMS arrival at 1010, RAFA Mack evaluated patient immediately upon arrival as Dr. Ravi was attending to another + [place] scale alfredo holder patient, patient wheeled to CT at 1011. - History of Current Complaint Stated Complaint: ALFREDO HOLDER PER EMS Time Seen by Provider: 05/08/19 10:19 Hx Obtained From: Patient, EMS Onset/Duration: Started hours ago - last known well was 1700 05/07/19, patient awoke this morning at 0600 05/08/19, found on floor 45 minutes prior to EMS arrival, Still Present Current Severity: None Neurological Deficit Location: RUE - drift, LUE - paralysis, LLE - paralysis Pain Intensity: 0 Pain Scale Used: 0-10 Numeric Character: Other: - left-sided paralysis, RUE drift, right eye gaze, slurred speech Aggravating: Nothing Alleviating: Nothing Associated Signs and Symptoms: Positive: Visual Changes - right sided gaze, Weakness - RUE drift, left sided paralysis, Impaired Speech - Allergy/Home Medications Allergies/Adverse Reactions: Allergies Allergy/AdvReac Type Severity Reaction Status Date / Time crab Allergy Difficulty Verified 05/08/19 10:41 Breathing/Wheezing Home Medications: Home Medications Atorvastatin* [Lipitor 20 MG*] 20 mg PO DAILY 05/08/19 [History Confirmed ] D3-2000 2,000 unit PO DAILY 05/08/19 [History Confirmed 05/08/19] Lisinopril 10 mg PO DAILY 05/08/19 [History Confirmed 05/08/19] Multivitamin 1 tab PO DAILY 05/08/19 [History Confirmed 05/08/19] PMH/Surg Hx/FS Hx/Imm Hx Cardiovascular History: Reports: Hx Hypertension Respiratory History: Denies: Other Respiratory Problems/Disorders Sensory History: Denies: Hx Legally Blind, Hx Deafness Opthamlomology History: Denies: Hx Legally Blind EENT History: Denies: Hx Deafness - Cancer History Hx Chemotherapy: No Hx Radiation Therapy: No - Surgical History Surgery Procedure, Year, and Place: NASAL SEPTUM SURGERIES Infectious Disease History: No Infectious Disease History: Denies: Traveled Outside the [place] in Last 30 Days - Family History Known Family History: Negative: Seizure Disorder - Social History Alcohol Use: None Substance Use Type: Reports: None Hx Tobacco Use: Yes Review of Systems Negative: Fever - on vitals, temp is 98.6 F Neurological: Other - positive - RUE drift, left-sided paralysis, right-sided eye gaze Positive: Slurred Speech All Other Systems Reviewed And Are Negative: Yes Physical Exam - Summary Physical Exam Summary: Appearance: The patient is well-nourished in no acute distress and in no acute pain. Skin: The skin is warm and dry and skin color reflects adequate perfusion. HEENT: The head is normocephalic and atraumatic. The pupils are equal and reactive. The conjunctivae are clear and without drainage. Nares are patent and without drainage. Mouth reveals moist mucous membranes and the throat is without erythema and exudate. The external ears are intact. The ear canals are patent and without drainage. The tympanic membranes are intact. Neck: The neck is supple with full range of motion and non-tender. There are no carotid bruits. There is no neck vein distension. Respiratory: Chest is non-tender. Lungs are clear to auscultation and breath sounds are symmetrical and equal. Cardiovascular: Heart is regular rate and rhythm. There is no murmur or rub auscultated. There is no peripheral edema and pulses are symmetrical and equal. Abdomen: The abdomen is soft and non-tender. There are normal bowel sounds heard in all four quadrants and there is no organomegaly palpated. Musculoskeletal: There is no back tenderness noted. Extremities are non-tender with full range of motion. There is good capillary refill. There is no peripheral edema or calf tenderness elicited. Neurological: GCS 15, NIH of 14, see NIHSS for more details of neurological exam. Psychiatric: The patient has an appropriate affect and does not exhibit any anxiety or depression. Triage Information Reviewed: Yes Vital Signs On Initial Exam: Initial Vitals Temp Pulse Resp BP Pulse Ox 98.6 F 86 20 160/80 98 05/08/19 10:35 05/08/19 10:35 05/08/19 10:35 05/08/19 10:35 05/08/19 10:35 Vital Signs Reviewed: Yes Diagnostics - Vital Signs Vital Signs Temp Pulse Resp BP Pulse Ox 05/08/19 10:35 98.6 F 86 20 160/80 98 - Laboratory Lab Results: Lab Results 05/08/19 05/08/19 Range/Units 10:23 10:23 WBC 5.7 (3.5-10.8) 10^3/uL RBC 4.06 (3.70-4.87) 10^6 /uL Hgb 14.0 (12.0-16.0) g/dL Hct 40 (35-47) % MCV 100 H (80-97) fL MCH 35 H (27-31) pg MCHC 35 (31-36) g/dL RDW 13 (10-15) % Plt Count 256 (150-450) 10^3/uL MPV 7.3 L (7.4-10.4) fL Neut % (Auto) 83.5 % Lymph % (Auto) 10.0 % [place]well % (Auto) 6.1 % Eos % (Auto) 0.1 % Baso % (Auto) 0.3 % Absolute Neuts (auto) 4.7 (1.5-7.7) 10^3/ul Absolute Lymphs (auto) 0.6 L (1.0-4.8) 10^3/ul Absolute Monos (auto) 0.3 (0-0.8) 10^3/ul Absolute Eos (auto) 0.0 (0-0.6) 10^3/ul Absolute Basos (auto) 0.0 (0-0.2) 10^3/ul Absolute Nucleated RBC 0.0 10^3/ul Nucleated RBC % 0.0 INR (Anticoag Therapy) 0.95 (0.82-1.09) APTT 26.0 (26.0-38.0) seconds Result Diagrams: 05/08/19 10:23 05/08/19 10:23 Lab Statement: Any lab studies that have been ordered have been reviewed, and results considered in the medical decision making process. - CT BRAIN CT CT Interpretation Completed By: Radiologist Summary of CT Findings: IMPRESSION: Questionable loss of holder-white differentiation involving the right frontal. lobe could be seen in the setting of acute/subacute territorial infarction. If this. correlates to the patient's clinical presentation superior characterization could be made. with MRI of the brain. THIS REPORT WAS REVIEWED BY DR. RAVI. HEAD CTA CT Interpretation Completed By: Radiologist Summary of CT Findings: IMPRESSION: 1. Complete occlusion of the right internal carotid artery extending intracranial to. involve the right middle cerebral artery and anterior communicating artery. There is. marked decrease in arterial flow to the right frontal and parietal lobes relative to the. left. 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 frontal and parietal lobes. 2. According to NASCET criteria there is 50% degree stenosis at the left internal carotid. artery. 3. Incidentally noted is asymmetric enlargement and heterogeneity of the right lobe of the. thyroid which can be better characterized with a nonemergent thyroid ultrasound if it will. influence the patient's management. THIS REPORT WAS REVIEWED BY DR. RAVI - EKG 1055 Cardiac Rate: NL - rate of 82 BPM EKG Rhythm: Sinus Rhythm ST Segment: Normal Ectopy: None Summary of EKG Findings: EKG showed NSR with rate of 82 BPM, no ectopy, normal ST, no STEMI. NIH Scale - NIH Scale Level of Consciousness: Alert/Keenly Responsive Ask Patient the Month and His/Her Age: Both Correct Ask Pt to Open/Close Eyes and Wrapper Sizer/Release Non-Paretic Hand: Both Correctly Best Gaze (Only Horizontal Eye Movement): Forced Deviation Visual Field Testing: No Visual Loss Facial Paresis-Pt to Smile & Close Eyes or Grimace Symmetry: Partial Paralysis Motor Function - Right Arm: No Drift-Holds 10 Seconds Motor Function - Left Arm: Effort Against Luke Motor Function - Right Leg: No Drift-Holds 10 Seconds Motor Function - Left Leg: No Movement Limb Ataxia-Must be out of Proportion to Weakness Present: Absent Sensory (Use Pinprick to Test Arms/Legs/Trunk/Face): Severe to Total Loss Best Language (Describe Picture, Name Items): No Aphasia Dysarthria (Read Several Words): Normal Extinction and Inattention: Profound Narciso-Inattention Total Score: 14 Course/Dx - Course Course Of Treatment: I examined Ms. Beltre in the CT scanner suite. The EMS crew reported that she had been seen normal at 7 PM last evening. The patient reports that she was fine when she got up this morning at 6:00 however she is very vague in her answers and sometimes contradicts herself and I'm not sure this is accurate information. I'm seeing her about 10:15 in the morning. She had a conjugate gaze to the right and a dense left hemiparesis and I estimated her NIH stroke scale was about 14. Even if I take 6:00 to be the last time she was seen well she is out of the thrombolytic window therefore CTA was immediately obtained after a negative CT of the brain. The CT showed a large left internal carotid clot involving the MCA and it's watershed. I spoke with Dr. Marroquin tonal regulator for Tel[facility] in [place]. He reviewed the CTA and CT and recommended against clot retrieval because of the extensiveness of the clot and some evidence for ischemic damage already occurring. I spoke with Dr. Lancaster on for our neurology service and Dr. Limon of the hospitalist for admission here. - Diagnoses Provider Diagnoses: CVA (cerebral vascular accident) During the Visit The Following Alert/Code Occurred: Code Olsen - Code holder called at 1004, EMS ETA seven minutes. EMS arrival at 1010, provider evaluated patient immediately upon arrival, patient wheeled to CT at 1012. - Physician Notifications Discussed Care Of Patient With: Dexter Marroquin Time Discussed With Above Provider: 11:02 Instructed by Provider To: Other - 1027 - Dr. Molina communicates results of Brain CT to RAFA Mack. 1050 - Dr. Molina communicates results of Head CTA to Dr. Ravi. 1102 - Patient's case was discussed with Dr. Marroquin, Dr. Marroquin states that he will review images and call back. 1108 - Dr. Marroquin called back , still needs to decide what to do with patient. 1139 - Dr. Marroquin states that the [place] can [place] [facility] [place]1 - Patient's case was discussed with Dr. Limon, Dr. Limon accepts for admission. 1213 - Patient's case was discussed with Dr. Lancaster, Dr. Lancaster recommends Plavix and ASA for the patient. - Critical Care Time Critical Care Time: 30-74 min Discharge - Sign-Out/Discharge Documenting (check all that apply): Patient Departure - admit - Discharge Plan Condition: Fair Disposition: ADMITTED TO [facility] - Billing Disposition and Condition Condition: FAIR Disposition: Admitted to [facility] - Attestation Statements Document Initiated by Madonna: Yes Documenting Scribe: ANA PAULA CHEN Provider For Whom Madonna is Documenting (Include Credential): ALEX RAVI MD Scribe Attestation: ANA PAULA Leon, scribed for ALEX RAVI MD on 05/08/19 at 1604. Scribe Documentation Reviewed: Yes Provider Attestation: The documentation as recorded by the ANA PAULA hairston accurately reflects the service I personally performed and the decisions made by me, ALEX RAVI MD Status of Scribe Document: Viewed
[2019-05-08 10:50] LABS: Albumin 4.2 g/dL (3.2-5.2); Albumin/Globulin Ratio 1.5 (1-3); BUN/Creatinine Ratio 17.5 (8-20); Calcium 9.7 mg/dL (8.6-10.3); EGFR African American 124.8 (>60); EGFR Non-African American 103.1 (>60); Globulin 2.8 g/dL (2-4); HDL Cholesterol 108.2 mg/dL; Potassium 4.7 mmol/L (3.5-5.0); Total Bilirubin 0.8 mg/dL (0.2-1.0)
[2019-05-08] MEDS ORDERED: Magnesium Hydroxide LIQ* 30 ML UDC PO PRN (12:51)
[2019-05-08] MEDS ORDERED: Acetaminophen TAB* 325 MG PO PRN (12:51)
[2019-05-08] MEDS ORDERED: Al Hydrox/Mg Hydrox/Simet LIQ* 30 ML UDC PO PRN (12:51)
[2019-05-08] MEDS ORDERED: Ondansetron INJ* 2 MG/ML VIAL IV PRN (12:51)
[2019-05-08] MEDS ORDERED: hydrALAZINE IV* 20 MG/ML VIAL IV SLOW PU PRN ×3 (12:58→14:07)
[2019-05-08] MEDS ORDERED: Thiamine IV* 100 MG/ML 2 ML VIAL IM ONE (13:26)
[2019-05-08] MEDS: Enoxaparin(*) 40 MG/0.4 ML SYR SUBCUT SCH (13:47)
[2019-05-08 13:51] LABS: Urine Appearance Cloudy; Urine Bilirubin Negative (Negative); Urine Blood Negative (Negative); Urine Color Amber; Urine Glucose Negative (Negative); Urine Ketones Negative (Negative); Urine Nitrite Negative (Negative); Urine Protein Negative (Negative); Urine Specific Gravity 1.047 (1.010-1.030); Urine Urobilinogen Negative (Negative)
[2019-05-08] MEDS ORDERED: LORazepam INJ* 2 MG/ML 1 ML VIAL IV PUSH SCH (14:00)
[2019-05-08] MEDS ORDERED: Clopidogrel TAB* 300 MG PO ONE (14:39)
[2019-05-08] MEDS: Aspirin 81 mg CHEW TAB* 81 MG TAB.CHEW PO SCH (15:40)
[2019-05-08] MEDS: NS 0.9% 1000 ML** 1,000 ML IV SCH (16:08)
--- NOTE | 2019-05-08 16:49 | CONS ---
CC: Dr. Wu * CONSULTATION REPORT: DATE OF CONSULTATION: 05/08/19 LOCATION: A 74-year-old female currently in ER Bed 14. PRIMARY CARE DOCTOR: Dr. Wu. REASON FOR CONSULTATION: Acute stroke. HISTORY OF PRESENT ILLNESS: Ms. Beltre is a 74-year-old female who has a history of hypertension and hyperlipidemia. Denies history of diabetes; history of reported heavy alcohol use and tobacco use. She was last seen normal last night at 7 p.m. She has a student that lives with her that came in and saw her at 6 a.m. sleeping in the bed. Later that morning she was found to be weak on the left side. Apparently, she got dressed and had breakfast at around 7 a.m. and then declined some time after that. The student found her on the floor and EMS was called, [facility] was called in the ER. She arrived at 10 :10. Her NIH stroke scale was calculated at 14 with dense hemiparesis on the left side, [facility] Stroke Team was consulted and evaluated her CT scan of the head. It showed some early changes of the stroke in the right frontal region. Subsequent CT angiogram showed abrupt cut off of the right ICA with occlusion extending to M1 with complete occlusion reported. She was outside of the tPA window, and [facility] felt that because of the hypodensities and stroke changes seen, she was not a good candidate for clot retrieval. It was recommended that she be admitted to [facility] for further workup, evaluation, and treatment. Again, the patient is a poor historian, but reports to me no current pain, no headaches she has some limited insight into her current weakness. There is no reported history of any of atrial fibrillation. She is not on any blood thinners. No reported falls, although she was found down. She denies any history of strokes in the past, no history of heart attacks in the past. She does note smoking approximately 10 cigarettes a day and reported heavy alcohol use, 2 bottles of wine a day. PAST MEDICAL HISTORY: As noted above. MEDICATIONS AT HOME: Include: 1. Atorvastatin. 2. Lisinopril. 3. Vitamin D3. The patient notes she has been compliant with her medications. ALLERGIES: CRAB. FAMILY HISTORY: Unknown. SOCIAL HISTORY: Lives by herself, has a tenant who lives with her. Smoking and drinking as noted above in the HPI. No reported drug use. REVIEW OF SYSTEMS: A review of systems of 14 organ systems was very difficult, but as noted in the HPI. PHYSICAL EXAM: Vital Signs: Afebrile, blood pressure in the 130s to 140s over the 80s to high of 126, heart rate 86 to 101, respiratory rate 19 to 29 on room air. In General: She is a well-nourished somewhat disheveled female lying in her hospital [facility], head at approximately 30 degrees. HEENT: She is normocephalic, atraumatic. Sclerae are anicteric. Mucous membranes are slightly dry. Oropharynx is clear. Nares are patent. Neck is supple. No thyromegaly. No carotid bruits. No meningismus. Chest: Clear to auscultation bilaterally. Cardiovascular: Regular rate and rhythm. Abdomen: Nontender, nondistended. Extremities: No clubbing, cyanosis, or edema. Neurologic Exam: She is awake, alert. She appears to be oriented to person. She is somewhat confused at times. Her speech is fluent with some dysarthria. Recall is impaired. Cranial Nerves: Pupils are equally round and reactive to light. Extraocular muscles, she has a right gaze preference, difficulty following past midline on the left. Visual gustafson were very difficult to assess. She did blink from the right and the left side. No nystagmus appreciated. Facial sensation appears intact to light touch. She has a left lower facial droop. Hearing appears intact bilaterally to finger rub. Tongue is midline. Palate raises symmetrically. Motor Exam: She was spontaneously moving the right side , antigravity, with good resistance. She has dense hemiparesis on the left side with no movement in the left upper or lower extremities. Tone was down on the left side sensation was difficult to fully assess. It appears that she has some diminished sensation on the left arm and leg and there may be some neglect on the left side as well. She is less attentive on the left side. Rapid alternating movements were intact on the right side. She has some mild tremor of the right arm. DTRs again difficult to assess, but appeared somewhat diminished on the left side, she had a biceps of 2+ on the right, 1+ on the left. Patellar was 2+ bilaterally. Ankles are absent. She has just mildly upgoing left Babinski, withdrawal right Babinski. Gait cannot be tested. DIAGNOSTIC STUDIES/LAB DATA: Lab work includes CBC with diff with an MCV of 100 , INR 0.95, PTT of 26. Complete metabolic profile with a glucose of 144, AST of 57, triglycerides 57 cholesterol 202, LDL 82, HDL 108.2. Urine was negative. Imaging as noted above: 1. Head CTA showed complete occlusion of the right internal carotid artery extending intracranial to involve the right middle cerebral artery and anterior communicating artery. There is marked decreased in arterial flow to the right frontal and parietal lobes relative to the left. CTA findings are consistent with acute territorial infarct mostly in the right frontal and parietal regions. There is also 50 degrees stenosis at the left internal carotid artery. Incidentally noted is an asymmetric enlargement and heterogeneity of the right lobe of the thyroid. CT scan of the brain was reviewed, it appears to show some changes in the beach-white differentiation on the right side in the frontal area. ASSESSMENT AND PLAN: Ms. Beltre is a 74-year-old female with a history of hypertension, dyslipidemia, vitamin D deficiency, smoking and alcohol use reported who presented to the hospital last known normal at 7 p.m. last night with onset of left hemiparesis sometime after 7 p.m. she was found by a tenant at home and brought her to the ER for further evaluation. The [facility] Stroke Center was contacted. NIH at the time 14. [facility] reviewed her history and films and felt that she was outside of the tPA window and she was not a good candidate for clot retrieval given the changes seen on CT scan. It was recommended that she be admitted here for further medical management. She is currently having a difficult time swallowing. She presents what is most likely a right frontal lobe infarct likely right MCA, possibly CALEB, with changes seen on CT scan and exam findings consistent. She is being admitted to the hospital for further workup including an MRI of the brain, echocardiogram. Because of her difficulty swallowing we are going to give her some aspirin either in applesauce or p.r., would like to load her on Plavix 300 mg x1 and then start 75 mg a day. We will need to adjust her statin residential when she is able to swallow safely for a goal LDL less than 70. I would allow her blood pressure to run on the high end for now, given the acute stroke and the significant clot with limited flow to the right side seen on CT angiogram. Parameters have been written for systolic blood pressure over 200, diastolic blood pressure over 100, need to monitor her closely for diabetes. She is a smoker and smoking cessation will be discussed with her during her hospitalization. Speech Therapy, Occupational Therapy, and Physical Therapy will need to be consulted as well. She will be put on frequent neural checks and monitored in the hospital. In addition, the patient has a reported history of alcohol use. She has been given thiamine and folic acid and I will continue that and put her on a alcohol withdrawal protocol, watch for evidence of delirium tremens including blood pressure lability, agitation, seizure-like activity. The patient had a thyroid mass seen on CTA, recommend thyroid ultrasound. We will advance diet as tolerated per swallow evaluation. Will likely need a dual antiplatelet therapy for the next 30 days, subsequently aspirin after that. I will continue to follow her closely, make further recommendations as necessary. Thank you for the opportunity to participate in the care of this very interesting patient. [id number]/[facility] #: [id number] TEA
--- NOTE | 2019-05-08 19:56 | HP ---
AMENDED REPORT NOW INCLUDES DESIGNATED COSIGNER CC: Dr. Wu * HISTORY AND PHYSICAL: DATE OF ADMISSION: 05/08/19 PROVIDER: RAFA Moe. ATTENDING PHYSICIAN: Dr. Yury Limon * (dictated by RAFA Moe) PRIMARY CARE PROVIDER: Dr. Wu. CONSULTING TELEMEDICINE NEUROLOGIST: Dr. Howard. CONSULTING NEUROLOGIST: Dr. Lukas Lancaster. CHIEF COMPLAINT: found down, left-sided weakness HISTORY OF PRESENT ILLNESS: Angelica Beltre is a 74-year-old white female with past medical history significant for hypercholesterolemia, hypertension, vitamin D deficiency, tobacco use, alcohol use, who presents to the emergency department via EMS due to her tenant finding her down approximately 9:30 in the morning. A veterinary student, Luna Perez, has been living with the patient for approximately 1 to 2 weeks as a renter and noted that the patient was last seen well at 7 p.m. yesterday evening. The student saw that the patient was laying in bed at 7 a.m. but did not assess her further as she was resting. Later when she checked on the patient at 9:30 a.m., she was seen slumped half off of her bed onto the floor. At this time, the patient was noted be confused , slurring her speech, but able to understand commands. The student notes that the patient was unable to move her left side and was asking to be stood up. She was unable to walk at that time. The student tenant then contacted EMS. The patient reports that she woke up at 4 a.m. and was feeling well, however, the patient is a poor historian as she believes that the student found her at 6 a.m. and this does not appear consistent with symptomatology. Additionally, she does at times seem confused during exam. Telemedicine [facility] Dr. Howard was contacted regarding this patient and reviewed the patient's head and neck CT angiogram. Dr. Howard determined that because there was already evidence of infract, that embolectomy and endarterectomy were not advisable. Dr. Howard also determined that the patient was already outside the window of tPA based on the story. At the time of evaluation, the patient complains of the blood pressure cuff in the right arm feeling painful, but otherwise there is no complaints. In the emergency department, the patient's vital signs 160/80, 98% O2 saturation on 2 L, pulse 86, respiratory rate 20 and temperate 98.6. She denies chest pain, difficulty breathing, visual changes, cool extremity, abdominal pain, loss of bowel or bladder control, fever/chills. PAST MEDICAL HISTORY: 1. Tobacco use. 2. Hypertension. 3. Hypercholesterolemia. 4. Vitamin D deficiency. PAST SURGICAL HISTORY: 1. Appendectomy. 2. Tonsillectomy. HOME MEDICATIONS: 1. Atorvastatin 20 mg p.o. daily. 2. Vitamin D3 of 2000 units daily. 3. Multivitamin 1 tab p.o. daily. 4. Lisinopril 10 mg p.o. daily. ALLERGIES: CRAB. FAMILY HISTORY: Father in his 30s in war as a soldier. Mother at age 81 of health problem that the patient is unsure of. SOCIAL HISTORY: The patient's in 2015 of a stroke. She has been living alone accept for [employer] living with her at times as renters. Her healthcare proxy is Breann Rosenthalon, phone #[phone]. who is a close family friend, who is known to the patient for 30 years. She is the patient's surrogate medical decision maker should she need one. 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 She reports smoking 10 cigarettes per day and drinking 2 glasses of wine per day. Her family friend Breann reports that the patient, in fact, drinks 1 to 2 bottles of wine per day. Denies illicit drug use. REVIEW OF SYSTEMS: An 11-point review of systems was completed and all pertinent positives and negatives are above in the HPI. All other systems are negative. PHYSICAL EXAMINATION GENERAL: Thin elderly white female, lying in hospital bed, appearing comfortable. HEENT: Head: Normocephalic, atraumatic. Eyes: Right conjugate gaze. Unable to track past midline to left side. No nystagmus noted. Left upper visual field not intact. Unable to assess right visual field due to poor cooperation of the patient. PERRL. Sclerae anicteric. ENT: Mucous membranes are moist. NECK: Supple. LUNGS: Clear to auscultation throughout. CARDIO: Regular rate and rhythm without murmurs, rubs, or gallops. ABDOMEN: Soft, nontender, nondistended without hepatosplenomegaly. EXTREMITIES: Left upper extremity noted to be cool to touch, but with good pulses and capillary refill, was found to be dangling of edge of bed, otherwise no clubbing, cyanosis, or edema. NEUROLOGIC: Patient is alert. The patient's speech is slurred. There is left- sided hemiparesis throughout. Face is not symmetrical due to left-sided hemiparesis. The patient is unable to move left upper extremity and left lower extremity with any movements. Sensation to touch throughout the left upper extremity is not intact. Sensation to light touch throughout the left lower extremity is intact, but diminished compared to right lower extremity per the patient. Unable to assess ataxia due to hemiparesis. SKIN: Skin is intact without rash or ulcers. DIAGNOSTIC STUDIES/LAB DATA: White blood cell count 9.7, hemoglobin 14, hematocrit 40, platelet count 256. INR of 0.95. PTT 26. Sodium 139, potassium 4.7, chloride 103, carbon dioxide 29, BUN 10, creatinine 0.57, glucose 144, lactic acid 1.4. Bili 0.8, AST 57, ALT 52, alk phos 74. Troponin 0.00. LDL 82, HDL 102, total cholesterol 202, triglycerides 57. Brain CT, impression, questionable loss of mackenzie-white differentiation involving the right frontal lobe could be seen in the setting of acute/subacute territorial infarction. If this correlates to the patient's clinical presentation, superior characterization could be made based on the MRI of the brain. Head and neck CT angiogram, impression: 1. 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 There is marked decreased in arterial flow to right frontal and parietal lobes relative to left. 2. 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 According to NASCET criteria there is 50% severe stenosis at the left internal carotid artery. 3. Incidentally noted asymmetrical enlargement of heterogeneity of the right lobe of the thyroid which should be better characterized with thyroid ultrasound that will influence the patient's management. EKG normal sinus rhythm without ST elevation and depression with T-wave inversion at 82 beats per minute. No prior EKGs were for comparison. ASSESSMENT AND TREVIÑO: Angelica Beltre is a 74-year-old white female with past medical history significant for hypercholesterolemia, hypertension, vitamin D deficiency, tobacco use, who presents the emergency department via EMS due to slurred speech and hemiplegia. The patient is admitted inpatient for: 1. Cerebrovascular accident: Telemedicine [facility] Stroke Team was consulted and recommends against intervention for clot retreival at this time and therefore transfer is not needed. She is also not a candidate for tPA given that her likely last known well time was at least 15 hours before presentation to the ED. Dr. Lancaster of the Neurology Service at this facility has been contacted and recommends medical management of this patient with aspirin and Plavix. At this point, the patient has failed the nursing bedside swallow evaluation for thin liquids, but was able to eat applesauce. She will be given aspirin and Plavix crushed in applesauce but will otherwise be NPO until speech evaluation performed by PODODERMATOLOGIST. Physical Therapy and Occupational Therapy have been ordered. MRI brain without contrast has been ordered. Nonfasting LDL is 82. The patient is already on 20 mg of Lipitor at home. I will increase her Lipitor to 40 mg, however, this will not be given in the current NPO phase. I will check hemoglobin A1c in the morning. The patient is admitted to telemetry floor. Neuro checks every 4 hours ordered. 2. Alcohol use. The patient's close family friend reports that the patient has been recently drinking 1 to 2 bottles of wine per day. I will order WAM protocol in case the patient has alcohol withdrawal during this hospital stay. No evidence of withdrawal at this time. IV thiamine has been ordered. Oral thiamine, folic acid, and multivitamin will start tomorrow pending PODODERMATOLOGIST evaluation. 3. Hypertension. The patient currently is normotensive and at times has SBP in the 160s, which is acceptable per Dr. Lancaster. The patient's home lisinopril will be held. IV hydralazine has been ordered prn for SBP greather than 200 and DBP greater than 100. 4. DVT prophylaxis. The patient has been started on Lovenox. She has DVT risk score of 3. 5. Diet. NPO except for aspirin and plavix crushed in applesauce until swallow evaluation be completed. 6. Code status. The patient is DNR/DNI. MOLST has been updated. TIME SPENT: Approximately 55 minutes was spent on this admission, approximately half of this time was spent at bedside. I discussed this case with my attending physician, Dr. Yury Limon, and he agrees with this plan of care. RAFA MOE [id number]/[facility] #: [id number] [facility]
[2019-05-09] MEDS: NS 0.9% 1000 ML** 1,000 ML IV SCH ×2 (05:49→22:30)
[2019-05-09 06:38] LABS: ABS Lymphocytes 0.9 10^3/ul (1.0-4.8); ABS Monocytes 0.7 10^3/ul (0-0.8); Eosinophil % 0.1 %; Hematocrit 38 % (35-47); Hemoglobin 13.2 g/dL (12.0-16.0); Lymphocyte % 13.1 %; Mean Corpuscular HGB Conc 35 g/dL (31-36); Mean Corpuscular Hemoglobin 35 pg (27-31); Mean Corpuscular Volume 100 fL (80-97); Mean Platelet Volume 7.8 fL (7.4-10.4); Nucleated Red Blood Cells % 0.1; Platelet Count 220 10^3/uL (150-450); Red Blood Count 3.77 10^6 /uL (3.70-4.87); Red Cell Distribution Width 13 % (10-15); White Blood Count 6.7 10^3/uL (3.5-10.8)
[2019-05-09 06:55] LABS: BUN/Creatinine Ratio 29.6 (8-20); EGFR African American 132.8 (>60); EGFR Non-African American 109.8 (>60); Potassium 4.1 mmol/L (3.5-5.0)
[2019-05-09] MEDS: Folic Acid TAB* 1 MG PO SCH (09:24)
[2019-05-09] MEDS: Vitamin THERAPEUTIC TAB PO SCH (09:26)
[2019-05-09] MEDS: Clopidogrel TAB* 75 MG PO SCH (09:27)
[2019-05-09] MEDS: Aspirin 81 mg CHEW TAB* 81 MG TAB.CHEW PO SCH (09:27)
[2019-05-09] MEDS: Atorvastatin* 20 MG TAB PO SCH (09:27)
[2019-05-09] MEDS: Thiamine TAB* 100 MG TAB PO SCH (09:33)
[2019-05-09] MEDS: Cholecalciferol TAB* 1000 UNITS PO SCH (09:33)
--- NOTE | 2019-05-09 10:18 | PN ---
Subjective Date of Service: 05/09/19 Length of Stay: 1 Days Interval History: Overnight, no new issues. Remains densely hemiparetic on the left side. Was able to swallow apple sauce but currently NPO pending swallowing study. Echo pending MRI Pending Objective Active Medications: Acetaminophen (Tylenol Tab*) 650 mg PO Q4H PRN PRN Reason: FEVER/PAIN Al Hydrox/Mg Hydrox/Simethicone (Maalox Plus*) 30 ml PO Q6H PRN PRN Reason: INDIGESTION Aspirin (Aspirin 81 Mg Chew Tab*) 81 mg PO DAILY [facility] Last Admin: 05/09/19 09:27 Dose: 81 mg Atorvastatin Calcium (Lipitor*) 20 mg PO DAILY [facility] Last Admin: 05/09/19 09:27 Dose: 20 mg Cholecalciferol (Vitamin D Tab*) 2,000 units PO DAILY [facility] Last Admin: 05/09/19 09:33 Dose: 2,000 units Clopidogrel Bisulfate (Plavix Tab*) 75 mg PO DAILY [facility] Last Admin: 05/09/19 09:27 Dose: 75 mg Enoxaparin Sodium (Lovenox(*)) 40 mg SUBCUT Q24H [facility] Last Admin: 05/08/19 13:47 Dose: 40 mg Folic Acid (Folvite Tab*) 1 mg PO DAILY [facility] Last Admin: 05/09/19 09:24 Dose: 1 mg Hydralazine HCl (Apresoline Iv*) 5 mg IV SLOW PU Q6H PRN PRN Reason: SYSTOLIC BP GREATER THAN: Sodium Chloride (Ns 0.9% 1000 Ml) 1,000 mls @ 75 mls/hr IV PER RATE [facility] Last Admin: 05/09/19 05:49 Dose: 75 mls/hr Lorazepam (Ativan Inj*) 0 - 3 mg IV PUSH .PER WAM PROTOCOL [facility]; Protocol Magnesium Hydroxide (Milk Of Magnesia Liq*) 30 ml PO Q4H PRN PRN Reason: CONSTIPATION Multivitamins (Theragran Tab*) 1 tab PO DAILY [facility] Last Admin: 05/09/19 09:26 Dose: 1 tab Ondansetron HCl (Zofran Inj*) 4 mg IV Q4H PRN PRN Reason: NAUSEA/VOMITING Thiamine HCl (Vitamin B-1 Tab*) 100 mg PO DAILY [facility] Last Admin: 05/09/19 09:33 Dose: 100 mg Vital Signs 05/08/19 05/08/19 05/08/19 10:35 10:45 10:48 Temperature 98.6 F Pulse Rate 86 78 83 Respiratory 20 16 14 Rate Blood Pressure 160/80 135/80 (mmHg) O2 Sat by Pulse 98 100 99 Oximetry 05/08/19 05/08/19 05/08/19 11:00 11:02 11:18 Temperature Pulse Rate 88 87 85 Respiratory 23 23 19 Rate Blood Pressure 146/116 162/80 (mmHg) O2 Sat by Pulse 100 100 100 Oximetry 05/08/19 05/08/19 05/08/19 11:33 11:48 12:00 Temperature Pulse Rate 87 87 89 Respiratory 21 23 23 Rate Blood Pressure 162/89 136/86 (mmHg) O2 Sat by Pulse 98 99 99 Oximetry 05/08/19 05/08/19 05/08/19 12:18 12:33 12:49 Temperature Pulse Rate 89 86 102 Respiratory 22 19 29 Rate Blood Pressure 159/84 154/82 145/126 (mmHg) O2 Sat by Pulse 99 98 99 Oximetry 05/08/19 05/08/19 05/08/19 14:03 15:05 15:13 Temperature 98.0 F 98 F 100.8 F Pulse Rate 95 95 101 Respiratory 21 21 18 Rate Blood Pressure 156/80 156/80 132/68 (mmHg) O2 Sat by Pulse 96 96 98 Oximetry 05/08/19 05/08/19 05/08/19 17:00 17:41 19:15 Temperature 101.1 F 101 F Pulse Rate 102 100 Respiratory 18 18 18 Rate Blood Pressure 145/75 151/52 (mmHg) O2 Sat by Pulse 96 96 Oximetry 05/08/19 05/08/19 05/08/19 20:00 21:00 23:00 Temperature 98.5 F 98.9 F Pulse Rate 79 78 Respiratory 20 20 16 Rate Blood Pressure 147/72 144/57 (mmHg) O2 Sat by Pulse 97 98 Oximetry 05/09/19 05/09/19 05/09/19 01:00 03:00 05:00 Temperature 98.8 F 99.7 F 99.5 F Pulse Rate 94 74 73 Respiratory 16 18 16 Rate Blood Pressure 130/81 144/69 150/63 (mmHg) O2 Sat by Pulse 100 100 98 Oximetry 05/09/19 05/09/1919 07:52 09:07 09:08 Temperature 98.5 F 99 F Pulse Rate 57 69 Respiratory 14 14 Rate Blood Pressure 138/51 172/58 124/52 (mmHg) O2 Sat by Pulse 100 100 Oximetry Intake and Output Last 24 Hours 05/07/19 05/08/19 05/09/19 05/10/19 06:59 06:59 06:59 06:59 Intake Total 992 Output Total 500 Balance 492 Weight 124 lb Intake: IV Fluids 992 NS (0.9%) 992 Oral 0 Output: [place] 500 Other: # Bowel Movements 0 # Voids 0 Oxygen Devices in Use Now: None Neurology Exam: General: Well nourished, well developed, NAD HEENT: Normocephelic/atraumatic, sclera anicteric, mucous membranes slightly dry Neck: Supple Chest: Clear to auscultation bilaterally Cardiovascular: Regular rate and rhythm Abdomen: Soft Extremities: No clubbing, cyanosis, or edema Neurological Findings: Awake, alert, seems alert to person but has a hard time answering questions Speech: fluent with mild to moderate dysarthria Cranial Nerve: PERRL, right gaze preference, VF difficult to evaluate, no nystagmus, left facial droop, facial sensation intact, hearing intact to finger rub bilaterally, palate elevates symmetrically, tongue midline Motor: Dense HP on the left arm/leg. Twitch in the left index finger today. Sensation: Difficult exam but appears that she has some loss of LT/PP on the left with some neglect as well. No resting or action tremor Gait: Unable to ambulate Result Diagrams: 05/09/19 05:39 05/09/19 05:39 Additional Lab and Data: Lab Results 05/08/19 05/08/19 Range/Units 10:23 10:23 WBC 5.7 (3.5-10.8) 10^3/uL RBC 4.06 (3.70-4.87) 10^6 /uL Hgb 14.0 (12.0-16.0) g/dL Hct 40 (35-47) % MCV 100 H (80-97) fL MCH 35 H (27-31) pg MCHC 35 (31-36) g/dL RDW 13 (10-15) % Plt Count 256 (150-450) 10^3/uL MPV 7.3 L (7.4-10.4) fL Neut % (Auto) 83.5 % Lymph % (Auto) 10.0 % [place] % (Auto) 6.1 % Eos % (Auto) 0.1 % Baso % (Auto) 0.3 % Absolute Neuts (auto) 4.7 (1.5-7.7) 10^3/ul Absolute Lymphs (auto) 0.6 L (1.0-4.8) 10^3/ul Absolute Monos (auto) 0.3 (0-0.8) 10^3/ul Absolute Eos (auto) 0.0 (0-0.6) 10^3/ul Absolute Basos (auto) 0.0 (0-0.2) 10^3/ul Absolute Nucleated RBC 0.0 10^3/ul Nucleated RBC % 0.0 INR (Anticoag Therapy) 0.95 (0.82-1.09) APTT 26.0 (26.0-38.0) seconds Diagnostic Imagin. Head CTA showed complete occlusion of the right internal carotid artery extending intracranial to involve the right middle cerebral artery and anterior communicating artery. There is marked decreased in arterial flow to the right frontal and parietal lobes relative to the left. CTA findings are consistent with acute territorial infarct mostly in the right frontal and parietal regions. There is also 50 percent stenosis at the left internal carotid artery. Incidentally noted is an asymmetric enlargement and heterogeneity of the right lobe of the thyroid. CT scan of the brain was reviewed, it appears to show some changes in the beach-white differentiation on the right side in the frontal area. Assessment/Plan ASSESSMENT AND PLAN: Ms. Beltre is a 74-year-old female with a history of hypertension, dyslipidemia , vitamin D deficiency, smoking and alcohol use reported who presented to the hospital last known normal at 7 p.m. last night with onset of left hemiparesis sometime after 7 p.m. she was found by a tenant at home and brought her to the ER for further evaluation. The [facility] was contacted. [facility] at the time 14. [facility] reviewed her history and films and felt that she was not a good candidate for clot retrieval given the changes seen on CT scan. She was outside of the tPA window. It was recommended that she be admitted here for further medical management. 1. Echo pending 2. MRI pending 3. Continue ASA/Plavix for 30 days then ASA 81mg afterwards 4. Lipid control: goal LDL < 70 5. I would allow for high range blood pressures SBP 140s to 150s, DBP 80s to 90s given what appears to be high degree stenosis vs. complete clot in right ICA. I worry about hypoperfusion with low BPs 6. Smoking cessation needs to be further discussed 7. Swallowing study pending: advance diet as tolerated 8. Possible EtOH use: On [facility] protocol Unfortunately, I am very concerned that she will be left with profound HP on the left. Recommend intensive PT/OT/ST and will likely need time piece repairer care at home or placement.
--- NOTE | 2019-05-09 13:06 | ECHO ---
*[facility]* [place] [address] Fax #: [phone] Transthoracic Echocardiogram Patient: Angelica Beltre : 1945 Study Date: 05/09/2019 Age: 74 Gender: F HR: 63 bpm Height: 62 in /157.5 cm BSA: 1.57 m^2 Weight: 124.7 lb /56.7 kg BMI: 22.9 kg/m^2 *Rn Cardiovascular: * Ellie Wagner RDCS RN *Referring Physician: * O'Maricarmen Marks *Reading Physician: * Jose Guerra MD Indications: CVA. History: Risk factors: Current tobacco use. ETOH use. Hypertension. Dyslipidemia. Conclusions Summary: 1. Left ventricle: Systolic function is normal. The estimated ejection fraction is 55-60%. Wall motion is normal; there are no regional wall motion abnormalities. 2. Atrial septum: No defect or patent foramen ovale is identified. Bubble study was negative. Images 1 and 2. 3. Mitral valve: There is mild regurgitation. 4. Aortic valve: There is no evidence of stenosis. There is trace to mild regurgitation. 5. Tricuspid valve: There is mild regurgitation. 6. Pulmonary arteries: Systolic pressure is within the normal range, estimated to be 32 mm Hg. 7. Study data: No prior study is available for comparison. Study data: Transthoracic echocardiogram. Procedure: Transthoracic echocardiography was performed. Image quality was fair. The study was technically limited due to smoking history. Intravenous agitated saline was administered. A bubble study was performed on Images 1 and 2. Complete 2D, spectral Doppler, and color flow Doppler. Location: Bedside. Patient status: Inpatient. Patient room number: 439. No prior study is available for comparison. Rhythm: Normal sinus rhythm with PVC's. Findings Left ventricle: The cavity size is normal. Wall thickness is normal. There is a septal knuckle measuring 1.2 cm. Systolic function is normal. The estimated ejection fraction is 55-60%. Wall motion is normal; there are no regional wall motion abnormalities. There is no consistent Doppler evidence of clinically significant diastolic dysfunction. Right ventricle: The cavity size is normal. Systolic function is normal. Left atrium: The atrium is normal in size. Right atrium: The atrium is normal in size. Atrial septum: No defect or patent foramen ovale is identified. Bubble study was negative. Images 1 and 2. 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 Mitral valve: The leaflets are mildly thickened. There is no evidence of stenosis. There is mild regurgitation. Aortic valve: The valve is trileaflet. The leaflets are mildly thickened. There is no evidence of stenosis. There is trace to mild regurgitation. Tricuspid valve: The leaflets are mildly thickened. There is no evidence of stenosis. There is mild regurgitation. Pulmonic valve: Not well visualized. There is no evidence of stenosis. There is no regurgitation. Aorta: Aortic root: The aortic root is not dilated. Ascending aorta: The ascending aorta is not visualized. Aortic arch: The aortic arch is not dilated. Pericardium: There is no pericardial effusion. Pulmonary arteries: Not well visualized. Systolic pressure is within the normal range, estimated to be 32 mm Hg. Systemic veins: Inferior vena cava: The vessel is normal in size. The respirophasic diameter changes are in the normal range (>= 50%). Measurements Left ventricle Value Ref Aortic valve Value Ref OLGA, LAX 4.0 cm 3.8 - 5.2 Pretty diam, ED 1.8 cm ---- ESD, LAX 2.7 cm 2.2 - 3.5 Peak v, S 1.66 m/sec ---- FS, LAX 33 % 27 - 45 VTI, S 34.0 cm ---- PW, ED (H) 1.0 cm 0.6 - 0.9 Mean grad, S 6.0 mm Hg ---- IVS/PW, ED 1.07 Peak grad, S 11.0 mm Hg ---- PW/ID, ED 0.24 LVOT/AV, VTI ratio 0.85 ---- E', lat pretty, TDI (L) 7.2 cm/sec >=10.0 E/e', lat pretty, 18 Mitral valve Value Ref TDI Peak E 1.28 m/sec ---- E', med pretty, TDI (L) 5.7 cm/sec >=7.0 Peak A 1.61 m/sec --- - E/e', med pretty, 22 Decel time 296 ms ---- TDI Peak grad, D 6.6 mm Hg ---- E', avg, TDI 6.5 cm/sec Peak E/A ratio 0.8 ---- E/e', avg, TDI (H) 20 <=14 Pulmonic valve Value Ref LVOT Value Ref Peak v, S 0.96 m/sec ---- Peak rona, S 1.45 m/sec Peak grad, S 4.0 mm Hg ---- VTI, S 28.9 cm Peak grad, S 8 mm Hg Tricuspid valve Value Ref Mean grad, S 4 mm Hg Peak RV-RA grad, S 29 mm Hg ---- Max TR rona 2.7 m/sec ---- Ventricular septum Value Ref IVS, ED (H) 1.0 cm 0.6 - 0.9 Aortic root Value Ref Root diam 2.9 cm <3.8 Right ventricle Value Ref OLGA minor ax, A4C 2.1 cm 1.9 - 3.5 Aortic arch Value Ref mid Arch diam 2.2 cm ---- Pressure, S 32 mm Hg Decending aorta Value Ref Left atrium Value Ref Pretty peak rona 0.77 m/sec ---- AP dim, ES (L) 2.40 cm 2.70 - 3.80 Pulmonary artery Value Ref ML dim, A4C 3.0 cm Pressure, S 28.0 mm Hg ---- SI dim, A4C 4.1 cm Vol/bsa, ES, 1-p 14 ml/m^2 11 - 40 Inferior vena cava Value Ref A4C Diam 1.9 cm ---- Vol/bsa, ES, A/L 20 ml/m^2 16 - 34 Right atrium Value Ref ML dim, ES, A4C (L) 2.3 cm 2.6 - 4.4 SI dim/bsa, ES, 2.6 cm/m^2 1.9 - 3.1 A4C Estimated RAP 3 mm Hg Legend: (L) and (H) tereza values outside specified reference range. Prepared and electronically signed by Jose Guerra MD 05/09/2019 13:05
--- NOTE | 2019-05-09 13:32 | PN ---
Subjective Date of Service: 05/09/19 Interval History: HOSPITALIST PROGRESS NOTE Patient seen and examined at bedside. Care reviewed and d/w Desi Driver RN. She feels a little tired after working with PT, but offers no other complaints. Family History: Unchanged from Admission Social History: Unchanged from Admission Past Medical History: Unchanged from Admission Objective Active Medications: Acetaminophen (Tylenol Tab*) 650 mg PO Q4H PRN PRN Reason: FEVER/PAIN Al Hydrox/Mg Hydrox/Simethicone (Maalox Plus*) 30 ml PO Q6H PRN PRN Reason: INDIGESTION Aspirin (Aspirin 81 Mg Chew Tab*) 81 mg PO DAILY [facility] Last Admin: 05/09/19 09:27 Dose: 81 mg Atorvastatin Calcium (Lipitor*) 20 mg PO DAILY [facility] Last Admin: 05/09/19 09:27 Dose: 20 mg Cholecalciferol (Vitamin D Tab*) 2,000 units PO DAILY [facility] Last Admin: 05/09/19 09:33 Dose: 2,000 units Clopidogrel Bisulfate (Plavix Tab*) 75 mg PO DAILY [facility] Last Admin: 05/09/19 09:27 Dose: 75 mg Enoxaparin Sodium (Lovenox(*)) 40 mg SUBCUT Q24H [facility] Last Admin: 05/08/19 13:47 Dose: 40 mg Folic Acid (Folvite Tab*) 1 mg PO DAILY [facility] Last Admin: 05/09/19 09:24 Dose: 1 mg Hydralazine HCl (Apresoline Iv*) 5 mg IV SLOW PU Q6H PRN PRN Reason: SYSTOLIC BP GREATER THAN: Sodium Chloride (Ns 0.9% 1000 Ml) 1,000 mls @ 75 mls/hr IV PER RATE [facility] Last Admin: 05/09/19 05:49 Dose: 75 mls/hr Lorazepam (Ativan Inj*) 0 - 3 mg IV PUSH .PER [place] PROTOCOL [facility]; Protocol Magnesium Hydroxide (Milk Of Magnesia Liq*) 30 ml PO Q4H PRN PRN Reason: CONSTIPATION Multivitamins (Theragran Tab*) 1 tab PO DAILY [facility] Last Admin: 05/09/19 09:26 Dose: 1 tab Ondansetron HCl (Zofran Inj*) 4 mg IV Q4H PRN PRN Reason: NAUSEA/VOMITING Thiamine HCl (Vitamin B-1 Tab*) 100 mg PO DAILY [facility] Last Admin: 05/09/19 09:33 Dose: 100 mg Vital Signs - 8 hr 05/09/19 05/09/19 05/09/19 07:00 07:52 08:00 Temperature 98.5 F Pulse Rate 57 Respiratory 14 14 16 Rate Blood Pressure 138/51 (mmHg) O2 Sat by Pulse 100 Oximetry 05/09/19 05/09/19 05/09/19 09:00 09:07 09:08 Temperature 99 F Pulse Rate 69 Respiratory 14 14 Rate Blood Pressure 172/58 124/52 (mmHg) O2 Sat by Pulse 100 Oximetry 05/09/19 11:25 Temperature 99.6 F Pulse Rate 75 Respiratory 18 Rate Blood Pressure 152/52 (mmHg) O2 Sat by Pulse 98 Oximetry Appearance: Elderly lady sitting up in bed in NAD. Eyes: No Scleral Icterus Ears/Nose/Mouth/Throat: Mucous Membranes Moist Neck: Trachea Midline Respiratory: Symmetrical Chest Expansion and Respiratory Effort, Clear to Auscultation Cardiovascular: RRR - Normal S1 and S2 Abdominal: NL Sounds; No Tenderness; No Distention Extremities: No Edema Neurological: Alert and Oriented x 3, - - Left hemipleagia, left facial weakness , right gaze preference, left side neglect Result Diagrams: 05/09/19 05:39 05/09/19 05:39 Assess/Plan/Problems-Billing Assessment: Ms. 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 - Patient Problems (1) CVA (cerebral vascular accident) Comment: - Neurology input appreciated. - Echo showed normal EF without PFO. - Awaiting MRI brain. - PT/OT/ST evaluations. - Continue Aspirin, Clopidogrel, and increase Atorvastatin to 40mg. - Permissive HTN. - Neurochecks (2) Alcohol use Comment: - No signs of withdrawal at this time. - Continue WAM. (3) Tobacco abuse Comment: - Nicotine supplementation. (4) DVT prophylaxis Comment: - Lovenox. (5) DNR (do not resuscitate) Status and Disposition: Inpatient. Will needs DIMA.
[2019-05-09] MEDS: Enoxaparin(*) 40 MG/0.4 ML SYR SUBCUT SCH (14:11)
[2019-05-09] MEDS: Nicotine PATCH 14 MG/24 HR* PATCH TRANSDERM SCH (14:34)
[2019-05-09] MEDS: Nicotine Patch Removal NOTE FOLLOW UP SCH (21:41)
--- NOTE | 2019-05-10 09:41 | PN ---
Subjective Date of Service: 05/10/19 Length of Stay: 2 Days Interval History: No new events overnight. Remains hemiparetic on the left side. Sitting up in bed this morning but confused. She does follow commands. Denies any pain. Denies any other symptoms at this time. Studies: MRI Brain: Films personally reviewed: Large right MCA stroke Echo: EF 55-60%, no PFO or ASD. Systolic function normal Tele: No events overnight Family History: Unchanged from Admission Social History: Unchanged from Admission Past Medical History: Unchanged from Admission Objective Active Medications: Acetaminophen (Tylenol Tab*) 650 mg PO Q4H PRN PRN Reason: FEVER/PAIN Last Admin: 05/09/19 14:33 Dose: 650 mg Al Hydrox/Mg Hydrox/Simethicone (Maalox Plus*) 30 ml PO Q6H PRN PRN Reason: INDIGESTION Aspirin (Aspirin 81 Mg Chew Tab*) 81 mg PO DAILY [facility] Last Admin: 05/09/19 09:27 Dose: 81 mg Atorvastatin Calcium (Lipitor*) 20 mg PO DAILY [facility] Last Admin: 05/09/19 09:27 Dose: 20 mg Cholecalciferol (Vitamin D Tab*) 2,000 units PO DAILY [facility] Last Admin: 05/09/19 09:33 Dose: 2,000 units Clopidogrel Bisulfate (Plavix Tab*) 75 mg PO DAILY [facility] Last Admin: 05/09/19 09:27 Dose: 75 mg Enoxaparin Sodium (Lovenox(*)) 40 mg SUBCUT Q24H [facility] Last Admin: 05/09/19 14:11 Dose: 40 mg Folic Acid (Folvite Tab*) 1 mg PO DAILY [facility] Last Admin: 05/09/19 09:24 Dose: 1 mg Hydralazine HCl (Apresoline Iv*) 5 mg IV SLOW PU Q6H PRN PRN Reason: SYSTOLIC BP GREATER THAN: Sodium Chloride (Ns 0.9% 1000 Ml) 1,000 mls @ 75 mls/hr IV PER RATE [facility] Last Admin: 05/09/19 22:30 Dose: 75 mls/hr Lorazepam (Ativan Inj*) 0 - 3 mg IV PUSH .PER WA PROTOCOL [facility]; Protocol Magnesium Hydroxide (Milk Of Magnesia Liq*) 30 ml PO Q4H PRN PRN Reason: CONSTIPATION Multivitamins (Theragran Tab*) 1 tab PO DAILY [facility] Last Admin: 05/09/19 09:26 Dose: 1 tab Nicotine (Nicotine Patch 14 Mg/24 Hr*) 1 patch TRANSDERM DAILY [facility] Last Admin: 05/09/19 14:34 Dose: 1 patch Ondansetron HCl (Zofran Inj*) 4 mg IV Q4H PRN PRN Reason: NAUSEA/VOMITING Pharmacy Profile Note (Nicotine Patch Removal Note*) 1 note FOLLOW UP 2100 [facility] Last Admin: 05/09/19 21:41 Dose: 1 note Thiamine HCl (Vitamin B-1 Tab*) 100 mg PO DAILY [facility] Last Admin: 05/09/19 09:33 Dose: 100 mg Vital Signs 05/09/19 05/09/19 05/09/19 11:25 13:00 14:00 Temperature 99.6 F 99.1 F Pulse Rate 75 71 Respiratory 18 16 16 Rate Blood Pressure 152/52 141/51 (mmHg) O2 Sat by Pulse 98 98 Oximetry 05/09/19 05/09/19 05/09/19 15:06 18:00 18:35 Temperature 98.9 F 97.7 F Pulse Rate 65 65 Respiratory 18 18 18 Rate Blood Pressure 142/63 156/67 (mmHg) O2 Sat by Pulse 96 97 Oximetry 05/09/19 05/09/19 05/09/19 20:00 20:37 23:04 Temperature 98.1 F 98.2 F Pulse Rate 59 63 Respiratory 18 18 18 Rate Blood Pressure 149/76 144/69 (mmHg) O2 Sat by Pulse 99 100 Oximetry 05/10/19 05/10/19 05/10/19 00:00 02:00 02:24 Temperature 97.5 F 98.2 F Pulse Rate 65 109 Respiratory 18 18 18 Rate Blood Pressure 154/60 164/62 (mmHg) O2 Sat by Pulse 100 99 Oximetry 05/10/19 05/10/19 05/10/19 04:00 04:11 06:00 Temperature 97.5 F 97.5 F Pulse Rate 71 64 Respiratory 16 16 18 Rate Blood Pressure 152/69 159/52 (mmHg) O2 Sat by Pulse 99 97 Oximetry Intake and Output Last 24 Hours 05/08/19 05/09/19 05/10/19 05/11/19 06:59 06:59 06:59 06:59 Intake Total 992 2408 Output Total 500 200 Balance 492 2208 Weight 124 lb 124 lb Intake: IV Fluids 992 2108 NS (0.9%) 992 2108 Oral 0 300 Output: [place] 500 200 Other: # Bowel Movements 0 0 # Voids 0 Oxygen Devices in Use Now: Nasal Cannula Neurology Exam: General: Well nourished, well developed, NAD. Sitting up in bed HEENT: Normocephalic/atraumatic, sclera anicteric Neck: Supple Chest: Clear to auscultation bilaterally Cardiovascular: Regular rate and rhythm Abdomen: Soft Extremities: No clubbing, cyanosis, or edema Neurological Findings: Awake, alert, oriented to person only Speech: paucity of speech but fluent, answers question generally "yes or no." with mild to moderate dysarthria Cranial Nerve: PERRL, right gaze preference, VF remain difficult to evaluate with significant neglect, no nystagmus, left facial droop, palate elevates symmetrically, tongue midline Motor: Dense HP on the left arm/leg with no movement today Sensation: Difficult exam, significant neglect on the left side No resting or action tremor Gait: Unable to ambulate Result Diagrams: 05/09/19 05:39 05/09/19 05:39 Additional Lab and Data: Lab Results 05/08/19 05/08/19 Range/Units 10:23 10:23 WBC 5.7 (3.5-10.8) 10^3/uL RBC 4.06 (3.70-4.87) 10^6 /uL Hgb 14.0 (12.0-16.0) g/dL Hct 40 (35-47) % MCV 100 H (80-97) fL MCH 35 H (27-31) pg MCHC 35 (31-36) g/dL RDW 13 (10-15) % Plt Count 256 (150-450) 10^3/uL MPV 7.3 L (7.4-10.4) fL Neut % (Auto) 83.5 % Lymph % (Auto) 10.0 % [place] % (Auto) 6.1 % Eos % (Auto) 0.1 % Baso % (Auto) 0.3 % Absolute Neuts (auto) 4.7 (1.5-7.7) 10^3/ul Absolute Lymphs (auto) 0.6 L (1.0-4.8) 10^3/ul Absolute Monos (auto) 0.3 (0-0.8) 10^3/ul Absolute Eos (auto) 0.0 (0-0.6) 10^3/ul Absolute Basos (auto) 0.0 (0-0.2) 10^3/ul Absolute Nucleated RBC 0.0 10^3/ul Nucleated RBC % 0.0 INR (Anticoag Therapy) 0.95 (0.82-1.09) APTT 26.0 (26.0-38.0) seconds Diagnostic Imagin. Head CTA showed complete occlusion of the right internal carotid artery extending intracranial to involve the right middle cerebral artery and anterior communicating artery. There is marked decreased in arterial flow to the right frontal and parietal lobes relative to the left. CTA findings are consistent with acute territorial infarct mostly in the right frontal and parietal regions. There is also 50 percent stenosis at the left internal carotid artery. Incidentally noted is an asymmetric enlargement and heterogeneity of the right lobe of the thyroid. CT scan of the brain was reviewed, it appears to show some changes in the beach-white differentiation on the right side in the frontal area. MRI Brain: Films personally reviewed: Large right MCA stroke Echo: EF 55-60%, no PFO or ASD. Systolic function normal Tele: No events overnight Assessment/Plan Ms. Beltre is a 74-year-old female with a history of hypertension, dyslipidemia , vitamin D deficiency, smoking and alcohol use reported who presented to the hospital last known normal at 7 p.m. last night with onset of left hemiparesis sometime after 7 p.m. she was found by a tenant at home and brought her to the ER for further evaluation. The [facility] was contacted. [facility] at the time 14. [facility] reviewed her history and films and felt that she was not a good candidate for clot retrieval given the changes seen on CT scan. She was outside of the tPA window. MRI shows a large right MCA stroke Stroke workup complete: --Continue ASA/Plavix for 30 days then ASA 81mg afterwards --Adjust statin for halfway control, goal LDL < 70 --Allow for some mild permissive high-normal BP's: SBPs in the 140s, DBPs in 80s given high grade stenosis/occlusion. --Smoking cessation --Watch for any evidence of DM in the future --Swallowing stable at this point --I am going to repeat CT head to look for evidence of swelling given the large size of her stroke --PT/OT/ST Possible history of Alcohol Use: --On protocol, at this point, appears stable --Thiamine/FA Discharge planning: --Not safe to be at home without 24 hour full assist, may need placement.
[2019-05-10] MEDS: Cholecalciferol TAB* 1000 UNITS PO SCH (10:08)
[2019-05-10] MEDS: Folic Acid TAB* 1 MG PO SCH (10:09)
[2019-05-10] MEDS: Clopidogrel TAB* 75 MG PO SCH (10:09)
[2019-05-10] MEDS: Thiamine TAB* 100 MG TAB PO SCH (10:09)
[2019-05-10] MEDS: Atorvastatin* 20 MG TAB PO SCH (10:10)
[2019-05-10] MEDS: Vitamin THERAPEUTIC TAB PO SCH (10:11)
[2019-05-10] MEDS: Aspirin 81 mg CHEW TAB* 81 MG TAB.CHEW PO SCH (10:11)
[2019-05-10] MEDS: Nicotine PATCH 14 MG/24 HR* PATCH TRANSDERM SCH (10:12)
--- NOTE | 2019-05-10 10:45 | PN ---
Subjective Date of Service: 05/10/19 Interval History: HOSPITALIST PROGRESS NOTE Patient seen and examined at bedside. Care reviewed and d/w Sivakumar Browning RN. She is more lethargic at this time, but offers no complaints. Family History: Unchanged from Admission Social History: Unchanged from Admission Past Medical History: Unchanged from Admission Objective Active Medications: Acetaminophen (Tylenol Tab*) 650 mg PO Q4H PRN PRN Reason: FEVER/PAIN Last Admin: 05/09/19 14:33 Dose: 650 mg Al Hydrox/Mg Hydrox/Simethicone (Maalox Plus*) 30 ml PO Q6H PRN PRN Reason: INDIGESTION Aspirin (Aspirin 81 Mg Chew Tab*) 81 mg PO DAILY [facility] Last Admin: 05/10/19 10:11 Dose: 81 mg Atorvastatin Calcium (Lipitor*) 40 mg PO 1700 [facility] Cholecalciferol (Vitamin D Tab*) 2,000 units PO DAILY [facility] Last Admin: 05/10/19 10:08 Dose: 2,000 units Clopidogrel Bisulfate (Plavix Tab*) 75 mg PO DAILY [facility] Last Admin: 05/10/19 10:09 Dose: 75 mg Enoxaparin Sodium (Lovenox(*)) 40 mg SUBCUT Q24H [facility] Last Admin: 05/09/19 14:11 Dose: 40 mg Folic Acid (Folvite Tab*) 1 mg PO DAILY [facility] Last Admin: 05/10/19 10:09 Dose: 1 mg Hydralazine HCl (Apresoline Iv*) 5 mg IV SLOW PU Q6H PRN PRN Reason: SYSTOLIC BP GREATER THAN: Magnesium Hydroxide (Milk Of Magnesia Liq*) 30 ml PO Q4H PRN PRN Reason: CONSTIPATION Multivitamins (Theragran Tab*) 1 tab PO DAILY [facility] Last Admin: 05/10/19 10:11 Dose: 1 tab Nicotine (Nicotine Patch 14 Mg/24 Hr*) 1 patch TRANSDERM DAILY [facility] Last Admin: 05/10/19 10:12 Dose: 1 patch Ondansetron HCl (Zofran Inj*) 4 mg IV Q4H PRN PRN Reason: NAUSEA/VOMITING Pharmacy Profile Note (Nicotine Patch Removal Note*) 1 note FOLLOW UP 2100 [facility] Last Admin: 05/09/19 21:41 Dose: 1 note Thiamine HCl (Vitamin B-1 Tab*) 100 mg PO DAILY [facility] Last Admin: 05/10/19 10:09 Dose: 100 mg Vital Signs - 8 hr 05/10/19 05/10/19 05/10/19 04:00 04:11 06:00 Temperature 97.5 F 97.5 F Pulse Rate 71 64 Respiratory 16 16 18 Rate Blood Pressure 152/69 159/52 (mmHg) O2 Sat by Pulse 99 97 Oximetry Oxygen Devices in Use Now: None Appearance: Elderly lady lying in bed in NAD Eyes: No Scleral Icterus, PERRLA Ears/Nose/Mouth/Throat: Mucous Membranes Moist Neck: Trachea Midline Respiratory: Symmetrical Chest Expansion and Respiratory Effort, Clear to Auscultation Cardiovascular: RRR - Normal S1 and S2 Neurological: - - Lethargic, arousable to voice, oriented to self; left hemiplegia Result Diagrams: 05/09/19 05:39 05/09/19 05:39 Assess/Plan/Problems-Billing Assessment: Ms. 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 - Patient Problems (1) CVA (cerebral vascular accident) Comment: - Neurology input appreciated. - Echo showed normal EF without PFO. - MRI brain shows large right MCA CVA. - PT/OT/ST evaluations appreciated. - Continue Aspirin, Clopidogrel, and increase Atorvastatin to 40mg. - Permissive HTN. - Continue Neurochecks. - Will repeat CT brain today as she's at risk for edema. (2) Alcohol use Comment: - No signs of withdrawal at this time. - Will d/c WAM. - Continue Thiamine. (3) Tobacco abuse Comment: - Nicotine supplementation. (4) DVT prophylaxis Comment: - Lovenox. (5) DNR (do not resuscitate) Status and Disposition: Inpatient. Will abi DIMA.
[2019-05-10] MEDS: Enoxaparin(*) 40 MG/0.4 ML SYR SUBCUT SCH (13:23)
[2019-05-10] MEDS ORDERED: Acetaminophen TAB* 325 MG PO PRN (14:22)
[2019-05-10] MEDS: Atorvastatin* 40 MG TAB PO SCH (17:39)
[2019-05-10] MEDS: Nicotine Patch Removal NOTE FOLLOW UP SCH (21:38)
--- NOTE | 2019-05-11 09:49 | PN ---
Subjective Date of Service: 05/11/19 Interval History: HOSPITALIST PROGRESS NOTE Patient seen and examined at bedside. Care reviewed and d/w Sivakumar Browning RN. She is much more alert today. States she's tired of being in bad as it "hurts my butt". In good spirits today. Tells me her name is [place], although she was born in [place], and it means "secret friend". Family History: Unchanged from Admission Social History: Unchanged from Admission Past Medical History: Unchanged from Admission Objective Active Medications: Acetaminophen (Tylenol Tab*) 650 mg PO Q4H PRN PRN Reason: Fever/Pain 1-5 Last Admin: 05/10/19 21:27 Dose: 650 mg Al Hydrox/Mg Hydrox/Simethicone (Maalox Plus*) 30 ml PO Q6H PRN PRN Reason: INDIGESTION Aspirin (Aspirin 81 Mg Chew Tab*) 81 mg PO DAILY [facility] Last Admin: 05/10/19 10:11 Dose: 81 mg Atorvastatin Calcium (Lipitor*) 40 mg PO 1700 [facility] Last Admin: 05/10/19 17:39 Dose: 40 mg Cholecalciferol (Vitamin D Tab*) 2,000 units PO DAILY [facility] Last Admin: 05/10/19 10:08 Dose: 2,000 units Clopidogrel Bisulfate (Plavix Tab*) 75 mg PO DAILY [facility] Last Admin: 05/10/19 10:09 Dose: 75 mg Enoxaparin Sodium (Lovenox(*)) 40 mg SUBCUT Q24H [facility] Last Admin: 05/10/19 13:23 Dose: 40 mg Folic Acid (Folvite Tab*) 1 mg PO DAILY [facility] Last Admin: 05/10/19 10:09 Dose: 1 mg Hydralazine HCl (Apresoline Iv*) 5 mg IV SLOW PU Q6H PRN PRN Reason: SYSTOLIC BP GREATER THAN: Magnesium Hydroxide (Milk Of Magnesia Liq*) 30 ml PO Q4H PRN PRN Reason: CONSTIPATION Multivitamins (Theragran Tab*) 1 tab PO DAILY [facility] Last Admin: 05/10/19 10:11 Dose: 1 tab Nicotine (Nicotine Patch 14 Mg/24 Hr*) 1 patch TRANSDERM DAILY [facility] Last Admin: 05/10/19 10:12 Dose: 1 patch Ondansetron HCl (Zofran Inj*) 4 mg IV Q4H PRN PRN Reason: NAUSEA/VOMITING Pharmacy Profile Note (Nicotine Patch Removal Note*) 1 note FOLLOW UP 2100 [facility] Last Admin: 05/10/19 21:38 Dose: 1 note Thiamine HCl (Vitamin B-1 Tab*) 100 mg PO DAILY [facility] Last Admin: 05/10/19 10:09 Dose: 100 mg Vital Signs - 8 hr 05/11/19 05/11/19 03:23 07:53 Temperature 97.5 F 98.6 F Pulse Rate 58 61 Respiratory 14 19 Rate Blood Pressure 164/61 171/75 (mmHg) O2 Sat by Pulse 100 99 Oximetry Oxygen Devices in Use Now: None Appearance: Pleasant elderly lady sitting up in bed in NAD Eyes: No Scleral Icterus Ears/Nose/Mouth/Throat: Mucous Membranes Moist Neck: Trachea Midline Respiratory: Symmetrical Chest Expansion and Respiratory Effort, Clear to Auscultation Cardiovascular: RRR - Normal S1 and S2 Abdominal: NL Sounds; No Tenderness; No Distention Neurological: Alert and Oriented x 3 - Self, hospital, summer. Left hemiplegia Result Diagrams: 05/09/19 05:39 05/09/19 05:39 Assess/Plan/Problems-Billing Assessment: Ms. 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 - Patient Problems (1) CVA (cerebral vascular accident) Comment: - Neurology input appreciated. - Echo showed normal EF without PFO. - MRI brain shows large right MCA CVA and f/u CT brain shows some edema with no midline shift. D/w Dr Lancaster - would not repeat CR brain, unless change in clinical condition. - PT/OT/ST evaluations appreciated. - Continue Aspirin, Clopidogrel for 30 days and then stop Clopidogrel and continue Aspirin only. - Continue Atorvastatin to 40mg. - Permissive HTN - try to keep SBP~130. - Continue Neurochecks. (2) Alcohol use Comment: - No signs of withdrawal at this time. - WAM discontinued. - Continue Thiamine. (3) Tobacco abuse Comment: - Nicotine supplementation. (4) DVT prophylaxis Comment: - Lovenox. (5) DNR (do not resuscitate) Status and Disposition: Inpatient. Awaiting DIMA availability.
[2019-05-11] MEDS: Aspirin 81 mg CHEW TAB* 81 MG TAB.CHEW PO SCH (10:32)
[2019-05-11] MEDS: Folic Acid TAB* 1 MG PO SCH (10:33)
[2019-05-11] MEDS: Nicotine PATCH 14 MG/24 HR* PATCH TRANSDERM SCH (10:33)
[2019-05-11] MEDS: Clopidogrel TAB* 75 MG PO SCH (10:33)
[2019-05-11] MEDS: Cholecalciferol TAB* 1000 UNITS PO SCH (10:33)
[2019-05-11] MEDS: Thiamine TAB* 100 MG TAB PO SCH (10:35)
[2019-05-11] MEDS: Vitamin THERAPEUTIC TAB PO SCH (10:36)
--- NOTE | 2019-05-11 13:43 | CONSULT ---
Palliative / Hospice Consult Ordering Provider: Carole Abebe - PCP-Jazmin Referal Reason: emotional and practical support - Subjective Code Status: DNR Advance Directives Location: No Advance Directives MOLST Part A Completed: Yes - on chart MOLST Part E Completed:: Yes - on chart - History or Present Illness History or Present Illness: 74 yo female who presented to ER with sudden onset of L sided weakness, confusion and slurred speech. Pt was admitted for R MCA infarct. PMH is significant for hypercholesterolemia, HTN and vitamin D deficiency. Pt is smoker 10 cigs per day/wine drinker / no drug use. 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 Breann Montiel [phone] is her HCP. 2016 with massive stroke, she cared for him at home. Studies Ekg- nsr, brain CT- question of acute/subacute infarct R frontal area, CTA 100% occlusion LORELEI and LCA 50%, thyroid nodule, Echo-EF 55-60%, Brain MRI R MCA infarct, H/H 13.2/38, BUN/Cr 16/.54 egfr 109.8, Ca 9.7, alb 4.2, tprot 7 & INR .95. Pt was evaluated by neurology, PT, OT and speech and is pursuing subacute rehab. Lab Values: Laboratory Last Values WBC 6.7 10^3/uL (3.5-10.8) 05/09/19 05:39 RBC 3.77 10^6 /uL (3.70-4.87) 05/09/19 05:39 Hgb 13.2 g/dL (12.0-16.0) 05/09/19 05:39 Hct 38 % (35-47) 05/09/19 05:39 MCV 100 fL (80-97) H 05/09/19 05:39 MCH 35 pg (27-31) H 05/09/19 05:39 MCHC 35 g/dL (31-36) 05/09/19 05:39 RDW 13 % (10-15) 05/09/19 05:39 Plt Count 220 10^3/uL (150-450) 05/09/19 05:39 MPV 7.8 fL (7.4-10.4) 05/09/19 05:39 Neut % (Auto) 75.6 % 05/09/19 05:39 Lymph % (Auto) 13.1 % 05/09/19 05:39 Jack % (Auto) 10.8 % 05/09/19 05:39 Eos % (Auto) 0.1 % 05/09/19 05:39 Baso % (Auto) 0.4 % 05/09/19 05:39 Absolute Neuts (auto) 5.0 10^3/ul (1.5-7.7) 05/09/19 05:39 Absolute Lymphs (auto) 0.9 10^3/ul (1.0-4.8) L 05/09/19 05:39 Absolute Monos (auto) 0.7 10^3/ul (0-0.8) 05/09/19 05:39 Absolute Eos (auto) 0.0 10^3/ul (0-0.6) 05/09/19 05:39 Absolute Basos (auto) 0.0 10^3/ul (0-0.2) 05/09/19 05:39 Absolute Nucleated RBC 0.0 10^3/ul 05/09/19 05:39 Nucleated RBC % 0.1 05/09/19 05:39 INR (Anticoag Therapy) 0.95 (0.82-1.09) 05/08/19 10:23 APTT 26.0 seconds (26.0-38.0) 05/08/19 10:23 Sodium 140 mmol/L (135-145) 05/09/19 05:39 Potassium 4.1 mmol/L (3.5-5.0) 05/09/19 05:39 Chloride 106 mmol/L (101-111) 05/09/19 05:39 Carbon Dioxide 27 mmol/L (22-32) 05/09/19 05:39 Anion Gap 7 mmol/L (2-11) 05/09/19 05:39 BUN 16 mg/dL (6-24) 05/09/19 05:39 Creatinine 0.54 mg/dL (0.51-0.95) 05/09/19 05:39 Est GFR ( Amer) 132.8 (>60) 05/09/19 05:39 Est GFR (Non-Af Amer) 109.8 (>60) 05/09/19 05:39 BUN/Creatinine Ratio 29.6 (8-20) H 05/09/19 05:39 Glucose 109 mg/dL (70-100) H 05/09/19 05:39 POC Glucose (mg/dL) 128 mg/dL (70-100) H 05/08/19 10:48 Hemoglobin A1c 5.7 % (4.0-5.6) H 05/09/19 05:39 Lactic Acid 1.4 mmol/L (0.5-2.0) 05/08/19 10:23 Calcium 9.0 mg/dL (8.6-10.3) 05/09/19 05:39 Total Bilirubin 0.80 mg/dL (0.2-1.0) 05/08/19 10:23 AST 57 U/L (13-39) H 05/08/19 10:23 ALT 52 U/L (7-52) 05/08/19 10:23 Alkaline Phosphatase 74 U/L (34-104) 05/08/19 10:23 Troponin I 0.00 ng/mL (<0.04) 05/08/19 10:23 Total Protein 7.0 g/dL (6.4-8.9) 05/08/19 10:23 Albumin 4.2 g/dL (3.2-5.2) 05/08/19 10:23 Globulin 2.8 g/dL (2-4) 05/08/19 10:23 Albumin/Globulin Ratio 1.5 (1-3) 05/08/19 10:23 Triglycerides 57 mg/dL 05/08/19 10:23 Cholesterol 202 mg/dL 05/08/19 10:23 LDL Cholesterol 82 mg/dL 05/08/19 10:23 HDL Cholesterol 108.2 mg/dL 05/08/19 10:23 Urine Color Maia 05/08/19 13:39 Urine Appearance Cloudy 05/08/19 13:39 Urine pH 5.0 (5-9) 05/08/19 13:39 Ur Specific [place] 1.047 (1.010-1.030) H 05/08/19 13:39 Urine Protein Negative (Negative) 05/08/19 13:39 Urine Ketones Negative (Negative) 05/08/19 13:39 Urine Blood Negative (Negative) 05/08/19 13:39 Urine Nitrate Negative (Negative) 05/08/19 13:39 Urine Bilirubin Negative (Negative) 05/08/19 13:39 Urine Urobilinogen Negative (Negative) 05/08/19 13:39 Ur Leukocyte Esterase Negative (Negative) 05/08/19 13:39 Urine Glucose Negative (Negative) 05/08/19 13:39 - Objective Active Medications: Acetaminophen (Tylenol Tab*) 650 mg PO Q4H PRN PRN Reason: Fever/Pain 1-5 Last Admin: 05/10/19 21:27 Dose: 650 mg Al Hydrox/Mg Hydrox/Simethicone (Maalox Plus*) 30 ml PO Q6H PRN PRN Reason: INDIGESTION Aspirin (Aspirin 81 Mg Chew Tab*) 81 mg PO DAILY [facility] Last Admin: 05/10/19 10:11 Dose: 81 mg Atorvastatin Calcium (Lipitor*) 40 mg PO 1700 [facility] Last Admin: 05/10/19 17:39 Dose: 40 mg Cholecalciferol (Vitamin D Tab*) 2,000 units PO DAILY [facility] Last Admin: 05/10/19 10:08 Dose: 2,000 units Clopidogrel Bisulfate (Plavix Tab*) 75 mg PO DAILY [facility] Last Admin: 05/10/19 10:09 Dose: 75 mg Enoxaparin Sodium (Lovenox(*)) 40 mg SUBCUT Q24H [facility] Last Admin: 05/10/19 13:23 Dose: 40 mg Folic Acid (Folvite Tab*) 1 mg PO DAILY [facility] Last Admin: 05/10/19 10:09 Dose: 1 mg Hydralazine HCl (Apresoline Iv*) 5 mg IV SLOW PU Q6H PRN PRN Reason: SYSTOLIC BP GREATER THAN: Magnesium Hydroxide (Milk Of Magnesia Liq*) 30 ml PO Q4H PRN PRN Reason: CONSTIPATION Multivitamins (Theragran Tab*) 1 tab PO DAILY [facility] Last Admin: 05/10/19 10:11 Dose: 1 tab Nicotine (Nicotine Patch 14 Mg/24 Hr*) 1 patch TRANSDERM DAILY [facility] Last Admin: 05/10/19 10:12 Dose: 1 patch Ondansetron HCl (Zofran Inj*) 4 mg IV Q4H PRN PRN Reason: NAUSEA/VOMITING Pharmacy Profile Note (Nicotine Patch Removal Note*) 1 note FOLLOW UP 2100 [facility] Last Admin: 05/10/19 21:38 Dose: 1 note Thiamine HCl (Vitamin B-1 Tab*) 100 mg PO DAILY [facility] Last Admin: 05/10/19 10:09 Dose: 100 mg Vital Signs: Vital Signs: Temp Pulse Resp BP Pulse Ox 99.3 F 74 20 147/83 98 05/11/19 12:16 05/11/19 12:16 05/11/19 12:16 05/11/19 12:16 05/11/19 12:16 Patient Weight: Weight 56.245 kg Intake and Output: Intake & Output 05/09/19 05/10/19 05/11/19 05/12/19 06:59 06:59 06:59 06:59 Intake Total 992 2408 385 Output Total 500 200 700 Balance 492 2208 -315 Weight 56.245 kg 56.245 kg Intake: IV Fluids 992 2108 145 NS (0.9%) 992 2108 145 IVPB 0 NS (0.9%) 0 Oral 0 300 240 Output: Hollins 500 200 700 Other: # Bowel Movements 0 0 # Voids 0 ADLs: Meal Record Start: 05/08/19 14: 03 Freq: DAILY@0900,1400,1800 Status: Active Protocol: Created 05/08/19 14:03 System (Rec: 05/08/19 14:03 System TELE-C09) Document 05/09/19 09:35 [id number] (Rec: 05/09/19 09:36 [id number] TELE-C08) Document 05/09/19 14:17 [id number] (Rec: 05/09/19 14:19 [id number] TELE-C08) Document 05/09/19 18:00 [id number] (Rec: 05/09/19 20:46 [id number] TELE-C08) Document 05/10/19 09:00 [id number] (Rec: 05/10/19 14:45 [id number] TELE-C09) Document 05/10/19 14:00 [id number] (Rec: 05/10/19 14:50 [id number] TELE-C09) Document 05/10/19 18:00 [id number] (Rec: 05/10/19 21:30 [id number] TELE-C06) Intake and Output Start: 05/08/19 14: 03 Freq: DAILY@0600,1400,2200 Status: Active Protocol: Created 05/08/19 14:03 System (Rec: 05/08/19 14:03 System TELE-C09) Document 05/08/19 22:00 [id number] (Rec: 05/08/19 22:24 [id number] TELE-C10) Document 05/09/19 06:00 [id number] (Rec: 05/09/19 06:51 [id number] TELE-C07) Document 05/09/19 14:17 [id number] (Rec: 05/09/19 14:19 [id number] TELE-C08) Document 05/09/19 14:53 [id number] (Rec: 05/09/19 15:04 [id number] TELE-M20) Document 05/09/19 21:39 [id number] (Rec: 05/09/19 21:39 [id number] TELE-C08) Document 05/10/19 06:00 [id number] (Rec: 05/10/19 06:25 [id number] TELE-C07) Document 05/10/19 14:00 [id number] (Rec: 05/10/19 14:50 [id number] TELE-C09) Document 05/10/19 21:30 [id number] (Rec: 05/10/19 21:34 [id number] TELE-C06) Document 05/11/19 03:25 [id number] (Rec: 05/11/19 03:25 [id number] TELE-C11) Document 05/11/19 06:00 [id number] (Rec: 05/11/19 06:36 [id number] TELE-C11) Eyes: No Scleral Icterus Ears/Nose/Mouth/Throat: Mucous Membranes Moist Neck: Trachea Midline Cardiovascular: RRR - Normal S1 and S2 Respiratory: Clear to Auscultation Abdominal: NL Sounds; No Tenderness; No Distention Extremities: No Edema Neurological: Alert and Oriented x 3 - Self, hospital, summer. Left hemiplegia - Assessment Assessment: 74 yo female with L sided weakness secondary to R MCA infarct - Plan Consult Plan (MU): Palliative Plan: Spoke with pt, she understands she needs to go to subacute rehab at discharge to get stronger. Her goal is go back home. Currently she has a tenant who will be taking care of her cats. She was also getting meals on wheels and home health aide one day per week to help with light cleaning. 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 They had just started to talk about hospice but he unexpectantly. I gave her information about community palliative care services once she is discharged from rehab(brochure was given). We did briefly talk about the possibility if rehab was not successful she might have to pursue assisted living or SNF. Pt says she is motivated to do PT. Support was offered. She declined drift miner visit but said the Police Chief Deputy from her [employer] had visited. Her friend Christina is her main support. Pt didn't mention any other family. - Time On Unit Date of Evaluation: 05/11/19 Hospice Consult Time in: 13:00 Hospice Consult Time Out: 14:00 Hospice Consult Time Total: 60 > 50% of Time Spend In Counseling or Coordinating Care: Yes
[2019-05-11] MEDS: Enoxaparin(*) 40 MG/0.4 ML SYR SUBCUT SCH (15:09)
[2019-05-11] MEDS: Atorvastatin* 40 MG TAB PO SCH (17:47)
[2019-05-11] MEDS: Nicotine Patch Removal NOTE FOLLOW UP SCH (20:55)
--- NOTE | 2019-05-11 23:45 | DS ---
CC: Dr. Wu * DISCHARGE SUMMARY: DATE OF ADMISSION: 05/08/19 DATE OF DISCHARGE: 05/12/19 PRIMARY CARE PROVIDER: Dr. Wu. PUBLICATION DESIGNER NEUROLOGIST: Dr. Lukas Lancaster. DISCHARGE DIAGNOSIS: Right middle cerebral artery cerebrovascular accident. SECONDARY DIAGNOSES: 1. Hypertension. 2. Hyperlipidemia. 3. Vitamin D deficiency. 4. Tobacco use. 5. Alcohol use. MEDICATION LIST: 1. Acetaminophen 650 mg p.o. q.4 hours p.r.n. 2. Maalox Plus 30 mL p.o. q.6 hours p.r.n. indigestion. 3. Aspirin 81 mg p.o. daily. 4. Atorvastatin 40 mg p.o. daily. 5. Clopidogrel 75 mg p.o. daily for 30 days, then discontinued and continued just aspirin. 6. Vitamin D3 2000 units p.o. daily. 7. Folic acid 1 mg p.o. daily. 8. Milk of magnesia 30 mL p.o. q.4 hours p.r.n. constipation. 9. Multivitamin 1 tablet p.o. daily. 10. Nicotine patch 14 mg topical daily, removed at bedtime. 11. Thiamine 100 mg p.o. daily. HOSPITAL COURSE: Ms. Beltre is a 74-year-old lady with a past medical history as stated above that was brought into the emergency room after being found down with left-sided weakness. Her last seen well was 7 p.m. the prior evening. For details about her presentation, I refer you to her history and physical. CT of the brain showed questionable loss of beach-white differentiation involving the right frontal lobe that could be seen in the setting of acute/ subacute territory infarction. The patient then had a CTA of the head that showed complete occlusion of the right internal carotid artery extending intracranial to involve the right middle cerebral artery and anterior communicating artery. There was also incidental finding of asymmetry and heterogeneity of the right lobe of the thyroid, which can be better characterized with a non-emergent thyroid ultrasound. The patient was seen in consultation by Neurology (Dr. Lancaster) and the [facility] was contacted. The patient's NIH Stroke Scale was 14 and after reviewing the case, it was determined that the patient was outside of the tPA window and she was not a good candidate for clot retrieval given the changes seen on her CT scan. Dr. Lancaster's recommendation was to load her with aspirin and then start 75 mg a day and continue dual antiplatelet therapy for the next 30 days and subsequently just aspirin after that. The patient had a transthoracic echocardiogram that showed ejection fraction of 55% to 60% with no PFO identified and negative bubble study. No significant valve disease. The patient had an MRI of the brain that showed a large area of restriction of diffusion involving the right frontal and parietal lobes including right basal ganglia and right caudate nucleus consistent with right MCA infarct. A followup CT was performed and it showed some cerebral edema and area of the subacute infarct with local mass effect but no midline shift, no large hemorrhagic component was identified. The patient was found to have physical therapy, occupational therapy, and speech therapy needs and the plan is to have her discharge for rehabilitation on 05/12/19. On admission, there was report of alcohol intake and reports vary from one glass to a bottle of wine at night. The patient did not show any signs of alcohol withdrawal while in the hospital but she has been continued on thiamine and folate. The patient's blood pressure has been on the higher side while in the hospital and goal is to keep her systolic greater than 130. So, at this point, her blood pressure has been controlled without medication. The day prior to discharge, the patient slid from her chair to the floor but denied any localized pain and there was no reported significant trauma. Her vital signs are stable at this point. PHYSICAL EXAMINATION: Vital Signs: Temperature 98.3, heart rate 69, respiratory rate 20, oxygen saturation 97%, blood pressure is 129/79. General: The patient is a pleasant, elderly lady, sitting up in bed, in no acute distress. CVS: Normal S1, S2. Regular rate and rhythm. Chest: Breath sounds present bilaterally with no added sounds. Abdomen is soft, bowel sounds are present. Extremities: No edema. Neuro: The patient is alert and oriented x3. She has left hemiplegia with significant left-sided neglect. DIET: Regular diet. Texture, honey thick liquids. ACTIVITIES: Continue PT/OT as tolerated. DISPOSITION: To subacute rehab. STATUS WHILE IN THE HOSPITAL: Inpatient. CONDITION AT THE TIME OF DISCHARGE: Guarded. Please keep in mind this is a summarized version of this patient's hospital stay. If you need more information, please feel free to call me at [phone] or please obtain the full medical records. TIME SPENT: Approximately 45 minutes was spent to complete this discharge. [id number]/[facility] #: [id number] TEA
[2019-05-12 08:04] VITALS: BP 147/77
[2019-05-12] MEDS ORDERED: Lisinopril TAB* 5 MG PO SCH (09:00)
[2019-05-12] MEDS: Cholecalciferol TAB* 1000 UNITS PO SCH (09:43)
[2019-05-12] MEDS: Clopidogrel TAB* 75 MG PO SCH (09:45)
[2019-05-12] MEDS: Thiamine TAB* 100 MG TAB PO SCH (09:46)
[2019-05-12] MEDS: Aspirin 81 mg CHEW TAB* 81 MG TAB.CHEW PO SCH (09:48)
[2019-05-12] MEDS: Folic Acid TAB* 1 MG PO SCH (09:49)
[2019-05-12] MEDS: Vitamin THERAPEUTIC TAB PO SCH (09:50)
[2019-05-12] MEDS: Nicotine PATCH 14 MG/24 HR* PATCH TRANSDERM SCH (09:53)
--- NOTE | 2019-05-12 10:41 | DS ---
CC: Dr. Wu; Dr. Lancaster * DISCHARGE SUMMARY: ADDENDUM: Please note that this is an addition to Dr. Giraldo's discharge summary dictated on 05/11/19. DATE OF ADMISSION: 05/08/19 DATE OF DISCHARGE: 05/12/19 PRIMARY CARE PROVIDER: Dr. Wu. For the past 24 hours, there were no significant changes in the patient's neuro status. She still has left-sided dense hemiplegia. She also has left-sided hemineglect. The Hollins catheter that was placed in the emergency department at admission was discontinued by the day of discharge and it was recommended for the group home to check postvoid residuals daily for the next 2 days and to call the group home physician if the postvoid residual is above 200 mL. Otherwise the medications at discharge are unchanged from Dr. Giraldo's discharge. PHYSICAL EXAMINATION: Vital Signs: At the time of discharge, blood pressure of 147/77, heart rate of 74 and regular, respiratory rate of 14, oxygen saturation 99% on room air, and temperature 99.2. General: The patient is a pleasant 74-year-old female who is in no acute distress. The patient is alert and oriented x3. HEENT: Head atraumatic and normocephalic. Eyes: Pupils are equal, round, and reactive to light and accommodation. Oropharynx clear. Mucosa moist. Neck: Supple. No JVD, no bruits bilaterally. Cardiovascular: Regular rate and rhythm. No murmur. Respiratory: Clear to auscultation bilaterally. Abdomen: Soft and nontender. Bowel sounds present in all 4 quadrants. Extremities: There is no edema. Pulses are +2 bilaterally. No clubbing or cyanosis. Neurologic: On neuro evaluation, the patient has dense left-sided hemiplegia, left- sided facial droop, left-sided hemineglect. DISPOSITION AT DISCHARGE: To subacute rehab at [facility]. CONDITION ON DISCHARGE: Stable. Please note that this is a short summary of the patient's hospital stay. Please refer to further medical records for details. [id number]/[facility] #: [id number] MTDD
[2019-05-12] MEDS: Enoxaparin(*) 40 MG/0.4 ML SYR SUBCUT SCH (13:12)
== END 2019-05-12 13:30 | DRG 64 ==
LOC: ED 10:11 → MEDTELE 12:51
PROVIDERS: ADMIT Internal Medicine; ATTEND Internal Medicine
DX: I63.511 Cerebral infarction due to unspecified occlusion or stenosis of right middle cerebral artery (principal); G93.6 Cerebral edema; G81.94 Hemiplegia, unspecified affecting left nondominant side; R47.1 Dysarthria and anarthria; R47.81 Slurred speech; I10 Essential (primary) hypertension; E78.5 Hyperlipidemia, unspecified; R29.714 NIHSS score 14; Z66 Do not resuscitate; E55.9 Vitamin D deficiency, unspecified; E78.00 Pure hypercholesterolemia, unspecified; F17.210 Nicotine dependence, cigarettes, uncomplicated; I65.22 Occlusion and stenosis of left carotid artery; Z79.899 Other long term (current) drug therapy; Z91.013 Allergy to seafood; Z72.89 Other problems related to lifestyle
CPT/HCPCS: 36415; 70450; 70496; 70498; 70551; 80048; 80053; 80061; 81003; 83036; 83605; 84484; 85025; 85610; 85730; 93005; 93306; 97530; 99284; A9270-GY; G8978-GP-CM; G8979-GP-CI; J1650; J3411; Q9967